=== PATIENT | male | born 1930 | race Caucasian/White ===

== ENCOUNTER → 2017-08-12 | Outpatient (CLI) | payer MEDICARE ==
[~2017-08-12] MED LIST: DOC100 PO; DONE5TAB74 PO; LORA-802 PO; NONE NOW; OME20PT PO; OMEP-125 PO; ONDA8TAB94 PO; PER PO; RAN150 PO; RANI-324 PO; TAMS0.4C69 PO; TAMS0.4C70 PO
[2017-08-12 14:19] LABS: PLATELET COUNT, AUTOMATED 345 K/uL (150-450)
--- NOTE | 2017-08-12 14:39 | RADIOLOGY IMAGING REPORT ---
FACILITY: [facility] PATIENT NAME: Yobany Berrios : 1930 MR: [id number] V: [id number] EXAM DATE: ORDERING PHYSICIAN: SHERYL OJEDA TECHNOLOGIST: Location: [facility] Patient: Yobany Berrios : 1930 Visit/Account:[id number] Date of Sevice: 08/12/2017 2 VIEWS CHEST INDICATION: Question right lower lobe pneumonia COMPARISON: None available FINDINGS: Heart size within normal limits. There is borderline pulmonary hyperinflation with linear prominence of the interstitium within the ba ses finding indicative of chronic interstitial lung disease. No evidence of right lower lobe consoli dation or infiltrate. Note is made of a 4 mm circular density overlying the left lower lobe. This is of unknown chronicity . CT examination the chest abdomen and pelvis from 2012 is not retrievable in the system. Recommend follow-up radiograph in six months to verify stability IMPRESSION: 1. No evidence of acute process or right lower lobe pneumonia 2. Incidental note of 4 mm nodular density overlying left lower lobe. Recommend follow-up x-ray in six months to verify stability Report Dictated By: Ad Bruno MD at 08/12/2017 2:30 PM Report E-Signed By: Ad Bruno MD at 08/12/2017 2:33 PM [id number]:[email or web address]
== END ==
LOC: LAB 13:43
PROVIDERS: ATTEND Nurse Practitioner Primary Care
DX: R91.8 Other nonspecific abnormal finding of lung field (principal); R10.9 Unspecified abdominal pain
CPT/HCPCS: 36415; 71046; 81001; 82040; 82150; 82247; 82310; 82374; 82435; 82565; 82947; 83690; 84075; 84132; 84155; 84295; 84450; 84460; 84520; 85025

== ENCOUNTER 2018-04-23 15:34 | Emergency (ER) | payer MEDICARE ==
[~2018-04-23 15:34] MED LIST changes: +FLUT16SP19 NS; -RANI-324 PO; +RANI-366 PO
--- NOTE | 2018-04-23 15:43 | ER Report ---
History and Physical Time Seen By MD: 15:44 HPI/ROS CHIEF COMPLAINT: Confusion HISTORY OF PRESENT ILLNESS: 88-year-old male patient presents to the emergency room with his family with complaint of confusion. Family states that he had a 16 hour period where he was confused. He felt that medication that he was taking was affecting his stock portfolio. His son states that the patient had talked about going [place]. Son states that the patient would get onto atopic and would be convinced it would not be dissuaded. He denies any fevers, chills, nausea, vomiting or diarrhea. He states that he does have times of his doing better times a day is doing worse. REVIEW OF SYSTEMS: Respiratory: No cough, no dyspnea. Cardiovascular: No chest pain, no palpitations. Gastrointestinal: No vomiting, no abdominal pain. Musculoskeletal: No back pain. Allergies: Coded Allergies: No Known Drug Allergies (Unverified , 04/23/18) Home Meds Reported Medications Ranitidine Hcl (ZANTAC) 150 Mg Tablet, 150 MG PO PRN, TAB 04/23/18 Discontinued Reported Medications Loratadine (CLARITIN) 10 Mg Tablet, 10 MG PO PRN 12/16/16 Discontinued Scripts Fluticasone Prop 50 Mcg Ns (FLONASE 50 MCG NS) 16 Gm Valdez.susp, 2 SPRAYS NS QDAY for 30 Days, #1 BOT 3 Refills Prov:JALEN MATSON MD 10/21/17 Past Medical/Surgical History Patient has a past medical history of reflux, cholecystitis, enlarged prostate, arthritis, fractures, hypothyroidism, dementia. Patient has surgical history of cataract surgery, dental implants, TURP. Patient has a family medical history of cancer, CAD, stroke, diabetes. Reviewed Nurses Notes: Yes Hx Smoking: No Smoking Status: Never Smoker Constitutional Vital Sign - Last 24 Hours 04/23/18 04/23/18 04/23/18 04/23/18 15:38 15:45 16:00 16:15 Temp 97.4 Pulse 68 63 65 64 Resp 16 13 20 11 B/P (MAP) 127/83 139/85 (103) Pulse Ox 90 91 95 90 O2 Delivery Room Air 04/23/18 04/23/18 04/23/18 04/23/18 16:30 17:00 17:30 17:45 Pulse 67 58 Resp 20 B/P (MAP) 132/111 (118) 156/80 (105) 168/89 (115) Pulse Ox 98 95 98 04/23/18 04/23/18 04/23/18 18:00 18:15 18:30 Pulse 56 58 60 Resp 10 14 18 B/P (MAP) 158/89 (112) 151/87 (108) Pulse Ox 94 92 96 Physical Exam General Appearance: The patient is alert, has no immediate need for airway protection and no current signs of toxicity. Respiratory: Chest is non tender, lungs are clear to auscultation. Cardiac: regular rate and rhythm Gastrointestinal: Abdomen is soft and non tender, no masses, bowel sounds normal. Musculoskeletal: Neck: Neck is supple and non tender. Extremities have full range of motion and are non tender. Skin: No rashes or lesions. Neuro: Patient is alert, he is unable to tell me where he is at. Cranial nerves II through XII grossly intact. Patient was unable to complete serial sevens. DIFFERENTIAL DIAGNOSIS: After history and physical exam differential diagnosis was considered for stroke, TIA, urinary tract infection, infection. Medical Decision Making Data Points Result Diagram: 04/23/18 1556 04/23/18 1556 Laboratory Hematology Test 04/23/18 15:56 04/23/18 17:54 Red Blood Count 4.91 M/uL (4.00-5.60) Mean Corpuscular Volume 93.4 fL (80.0-96.0) Mean Corpuscular Hemoglobin 31.1 pg (26.0-33.0) Mean Corpuscular Hemoglobin Concent 33.3 g/dL (32.0-36.0) Red Cell Distribution Width 13.6 % (11.5-14.5) Mean Platelet Volume 7.4 fL (7.2-11.1) Neutrophils (%) (Auto) 74.7 % (39.4-72.5) Lymphocytes (%) (Auto) 18.1 % (17.6-49.6) Monocytes (%) (Auto) 5.7 % (4.1-12.4) Eosinophils (%) (Auto) 0.7 % (0.4-6.7) Basophils (%) (Auto) 0.8 % (0.3-1.4) Nucleated RBC Relative Count (auto) 0.1 /100WBC Neutrophils # (Auto) 8.3 K/uL (2.0-7.4) Lymphocytes # (Auto) 2.0 K/uL (1.3-3.6) Monocytes # (Auto) 0.6 K/uL (0.3-1.0) Eosinophils # (Auto) 0.1 K/uL (0.0-0.5) Basophils # (Auto) 0.1 K/uL (0.0-0.1) Nucleated RBC Absolute Count (auto) 0.01 K/uL Sodium Level 137 mmol/L (137-145) Potassium Level 3.7 mmol/L (3.5-5.0) Chloride Level 101 mmol/L (98-107) Carbon Dioxide Level 27 mmol/L (22-30) Blood Urea Nitrogen 22 mg/dl (9-21) Creatinine 1.10 mg/dl (0.66-1.25) Glomerular Filtration Rate Calc > 60.0 Random Glucose 125 mg/dl (75-110) Calcium Level 9.0 mg/dl (8.4-10.2) Total Bilirubin 0.4 mg/dl (0.2-1.3) Aspartate Amino Transf (AST/SGOT) 45 U/L (0-35) Alanine Aminotransferase (ALT/SGPT) 22 U/L (0-56) Alkaline Phosphatase 98 U/L (0-126) Ammonia < 9 UMOL/L (9-33) Troponin I < 0.012 ng/ml Total Protein 7.2 g/dl (6.3-8.2) Albumin 3.7 g/dl (3.5-5.0) Serum Alcohol < 10 mg/dl Urine Color Yellow Urine Clarity Clear Urine pH 7.0 pH (4.8-9.5) Urine Specific [place] 1.017 Urine Protein Negative mg/dL (NEGATIVE) Urine Glucose (UA) Negative mg/dL (NEGATIVE) Urine Ketones 20 mg/dL (NEGATIVE) Urine Blood Negative (NEGATIVE) Urine Nitrite Negative (NEGATIVE) Urine Bilirubin Negative (NEGATIVE) Urine Urobilinogen Negative mg/dL (0.2-1.9) Urine Leukocyte Esterase Negative (NEGATIVE) Urine RBC 2 /HPF (0-2/HPF) Urine WBC <1 /HPF (0-5/HPF) Urine Squamous Epithelial Cells Few /LPF (</=FEW) Urine Bacteria Negative /HPF (NONE-FEW) Urine Mucus None /HPF (NONE-FEW) Urine Opiates Screen Negative Urine Barbiturates Screen Negative Ur Tricyclic Antidepressants Screen Negative Urine Phencyclidine Screen Negative Urine Amphetamines Screen Negative Urine Benzodiazepines Screen Negative Urine Cocaine Screen Negative Urine Cannabinoids Screen Negative Chemistry Test 04/23/18 15:56 04/23/18 17:54 White Blood Count 11.1 k/uL (4.5-11.0) Red Blood Count 4.91 M/uL (4.00-5.60) Hemoglobin 15.3 g/dL (14.0-18.0) Hematocrit 45.9 % (42.0-52.0) Mean Corpuscular Volume 93.4 fL (80.0-96.0) Mean Corpuscular Hemoglobin 31.1 pg (26.0-33.0) Mean Corpuscular Hemoglobin Concent 33.3 g/dL (32.0-36.0) Red Cell Distribution Width 13.6 % (11.5-14.5) Platelet Count 390 K/uL (150-450) Mean Platelet Volume 7.4 fL (7.2-11.1) Neutrophils (%) (Auto) 74.7 % (39.4-72.5) Lymphocytes (%) (Auto) 18.1 % (17.6-49.6) Monocytes (%) (Auto) 5.7 % (4.1-12.4) Eosinophils (%) (Auto) 0.7 % (0.4-6.7) Basophils (%) (Auto) 0.8 % (0.3-1.4) Nucleated RBC Relative Count (auto) 0.1 /100WBC Neutrophils # (Auto) 8.3 K/uL (2.0-7.4) Lymphocytes # (Auto) 2.0 K/uL (1.3-3.6) Monocytes # (Auto) 0.6 K/uL (0.3-1.0) Eosinophils # (Auto) 0.1 K/uL (0.0-0.5) Basophils # (Auto) 0.1 K/uL (0.0-0.1) Nucleated RBC Absolute Count (auto) 0.01 K/uL Glomerular Filtration Rate Calc > 60.0 Calcium Level 9.0 mg/dl (8.4-10.2) Total Bilirubin 0.4 mg/dl (0.2-1.3) Aspartate Amino Transf (AST/SGOT) 45 U/L (0-35) Alanine Aminotransferase (ALT/SGPT) 22 U/L (0-56) Alkaline Phosphatase 98 U/L (0-126) Ammonia < 9 UMOL/L (9-33) Troponin I < 0.012 ng/ml Total Protein 7.2 g/dl (6.3-8.2) Albumin 3.7 g/dl (3.5-5.0) Serum Alcohol < 10 mg/dl Urine Color Yellow Urine Clarity Clear Urine pH 7.0 pH (4.8-9.5) Urine Specific [place] 1.017 Urine Protein Negative mg/dL (NEGATIVE) Urine Glucose (UA) Negative mg/dL (NEGATIVE) Urine Ketones 20 mg/dL (NEGATIVE) Urine Blood Negative (NEGATIVE) Urine Nitrite Negative (NEGATIVE) Urine Bilirubin Negative (NEGATIVE) Urine Urobilinogen Negative mg/dL (0.2-1.9) Urine Leukocyte Esterase Negative (NEGATIVE) Urine RBC 2 /HPF (0-2/HPF) Urine WBC <1 /HPF (0-5/HPF) Urine Squamous Epithelial Cells Few /LPF (</=FEW) Urine Bacteria Negative /HPF (NONE-FEW) Urine Mucus None /HPF (NONE-FEW) Urine Opiates Screen Negative Urine Barbiturates Screen Negative Ur Tricyclic Antidepressants Screen Negative Urine Phencyclidine Screen Negative Urine Amphetamines Screen Negative Urine Benzodiazepines Screen Negative Urine Cocaine Screen Negative Urine Cannabinoids Screen Negative Toxicology Test 04/23/18 15:56 04/23/18 17:54 Serum Alcohol < 10 mg/dl Urine Opiates Screen Negative Urine Barbiturates Screen Negative Ur Tricyclic Antidepressants Screen Negative Urine Phencyclidine Screen Negative Urine Amphetamines Screen Negative Urine Benzodiazepines Screen Negative Urine Cocaine Screen Negative Urine Cannabinoids Screen Negative Urinalysis Test 04/23/18 17:54 Urine Color Yellow Urine Clarity Clear Urine pH 7.0 pH (4.8-9.5) Urine Specific [place] 1.017 Urine Protein Negative mg/dL (NEGATIVE) Urine Glucose (UA) Negative mg/dL (NEGATIVE) Urine Ketones 20 mg/dL (NEGATIVE) Urine Blood Negative (NEGATIVE) Urine Nitrite Negative (NEGATIVE) Urine Bilirubin Negative (NEGATIVE) Urine Urobilinogen Negative mg/dL (0.2-1.9) Urine Leukocyte Esterase Negative (NEGATIVE) Urine RBC 2 /HPF (0-2/HPF) Urine WBC <1 /HPF (0-5/HPF) Urine Squamous Epithelial Cells Few /LPF (</=FEW) Urine Bacteria Negative /HPF (NONE-FEW) Urine Mucus None /HPF (NONE-FEW) EKG/Imaging Imaging Examination: CHEST SINGLE AP Comparison: Chest x-ray 08/12/2017. Chest CT 06/10/2012. History: confusion Findings: Cardiac and hilar contour size is normal. The 4 mm nodular density projecting over the left lower lung is unchanged since the most recent radio graph and given differences in modality is likely unchanged since the chest CT. No new or enlarging consolidation or nodule. No pneumothorax, edema, or effusion. Osseous structures are intact. IMPRESSION: No evidence of acute cardiopulmonary disease. Report Dictated By: Julio Camilo MD at 04/23/2018 5:39 PM Report E-Signed By: Julio Camilo MD at 04/23/2018 5:41 PM EXAMINATION: CT HEAD WITHOUT CONTRAST COMPARISON: None available HISTORY: Altered mental status today. PROCEDURE: Noncontrast CT from the vertex through the skull base. One of the following dose optimization techniques was utilized in the performance of this exam: Automated exposure control; adjustment of the mA and/or kV according to the patient's size; or use of an iterative reconstruction technique. Specific details can be referenced in the facility's radiology CT exam operational policy. FINDINGS: Brain volume: Mild global volume loss. Hemorrhage/extra-axial fluid: None. Mass effect/midline shift/edema: None. Ischemia: Mild chronic-appearing white matter change with no focal region of acute jimenez-white differentiation loss. Ventricles and basal cisterns: Within normal limits. Posterior fossa: Negative. Vessels: Atherosclerosis. Calvarium, skull base, and scalp: Negative. Visualized sinuses and orbits: Within normal limits. IMPRESSION: 1. No intracranial hemorrhage or mass effect. 2. Atrophy and chronic-appearing white matter change. No CT findings of acute ischemia. Report Dictated By: Julio Camilo MD at 04/23/2018 4:58 PM Report E-Signed By: Julio Camilo MD at 04/23/2018 5:03 PM ED Course/Re-evaluation ED Course Patient was admitted to examined, history and physical were obtained. Differential diagnoses were considered. On examination lungs are clear, heart is regular, abdomen soft nontender. Patient is alert, he is unable to telemetry where he was at. He is unable to complete serial sevens but cranials nerves II through XII grossly intact. Patient had equal strength bilaterally. A CT scan of the head was done, a CBC, CMP, troponin, EKG, chest x-ray, urinalysis were done. Labs were unremarkable, patient did have a slightly elevated white count of 11.1 with a very mild left shift. I had initially thought that patient would have a urinary tract infection. Patient had a negative urine. Troponin was negative, EKG showed a normal sinus rhythm. Chest x-ray showed no acute cardiopulmonary processes. CT scan of the head was negative. I discussed the findings with the patient and his family. I discussed about possible admission. Patient adamantly refused and family agreed. We will go ahead and discharge patient home. They're to return if condition worsens. They're to continue his normal medications. They verbalized understanding and agreement. Some did tell me that he does have concerns that both his parents are elderly and that his father does have some mild dementia. He is afraid that they will be a car accident or the house will catch fire. He does live far away. He was wondering about possible evaluation for competency. I informed him that that would be something that would be done through a psychiatrist. He said that he would keep an eye on the patient for the next couple days and certainly would bring him back with any worsening of his condition. Decision to Disposition Date: Apr 23, 2018 Decision to Disposition Time: 18:37 Depart Departure Latest Vital Signs Vital Signs Date Time Temp Pulse Resp B/P (MAP) Pulse Ox O2 Delivery O2 Flow Rate FiO2 04/23/18 18:30 60 18 151/87 (108) 96 04/23/18 15:38 97.4 Room Air Impression: Primary Impression: Confusion Condition: Condition Unchanged Disposition: HOME OR SELF-CARE Referrals: JALEN MATSON MD (PCP) Patient Instructions: GENERAL ER DISCHARGE INSTRUCTIONS Additional Instructions: If condition worsens come back to the ER. Continue with normal medications. Follow up with your primary care provider in the next week. We are culturing the urine and will call if there is anything that grows in the culture. ELROY MATIAS Apr 23, 2018 15:43
[2018-04-23] MEDS ORDERED: RANI-366 PO (15:45)
--- NOTE | 2018-04-23 16:38 | EKG ---
[place] [facility] [place] NAME: TOSHA WILSON : [id number] MR: [id number] V: [id number] EXAM DATE: ORDERING PHYSICIAN: ELROY MATIAS TECHNOLOGIST: KEERTHI Guadalupe Reason : CONFUSION Blood Pressure : / mmHG Vent. Rate : 065 BPM Atrial Rate : 065 BPM P-R Int : 178 ms QRS Dur : 078 ms QT Int : 416 ms P-R-T Axes : 051 036 053 degrees QTc Int : 432 ms Normal sinus rhythm Normal ECG When compared with ECG of 10-JUN-2012 08:33, No significant change was found Confirmed by ZULEIMA BLACK ([id number]) on 04/23/2018 8:54:06 PM Referred By: FLORENCIO Confirmed By:ZULEIMA BLACK
[2018-04-23 16:39] LABS: PLATELET COUNT, AUTOMATED 390 K/uL (150-450)
--- NOTE | 2018-04-23 17:07 | RADIOLOGY IMAGING REPORT ---
FACILITY: [facility] [place] PATIENT NAME: Yobany Berrios : 1930 MR: [id number] V: [id number] EXAM DATE: ORDERING PHYSICIAN: ELROY MATIAS TECHNOLOGIST: Location: [facility] Patient: Yobany Berrios : 1930 Visit/Account:[id number] Date of Sevice: 04/23/2018 EXAMINATION: CT HEAD WITHOUT CONTRAST COMPARISON: None available HISTORY: Altered mental status today. PROCEDURE: Noncontrast CT from the vertex through the skull base. One of the following dose optimizat ion techniques was utilized in the performance of this exam: Automated exposure control; adjustment o f the mA and/or kV according to the patient's size; or use of an iterative reconstruction technique. Specific details can be referenced in the facility's radiology CT exam operational policy. FINDINGS: Brain volume: Mild global volume loss. Hemorrhage/extra-axial fluid: None. Mass effect/midline shift/edema: None. Ischemia: Mild chronic-appearing white matter change with no focal region of acute jimenez-white differe ntiation loss. Ventricles and basal cisterns: Within normal limits. Posterior fossa: Negative. Vessels: Atherosclerosis. Calvarium, skull base, and scalp: Negative. Visualized sinuses and orbits: Within normal limits. IMPRESSION: 1. No intracranial hemorrhage or mass effect. 2. Atrophy and chronic-appearing white matter change. No CT findings of acute ischemia. Report Dictated By: Julio Camilo MD at 04/23/2018 4:58 PM Report E-Signed By: Julio Camilo MD at 04/23/2018 5:03 PM WSN:[id number]
--- NOTE | 2018-04-23 17:45 | RADIOLOGY IMAGING REPORT ---
FACILITY: [facility] PATIENT NAME: Yobany Berrios : 1930 MR: [id number] V: [id number] EXAM DATE: ORDERING PHYSICIAN: ELROY MATIAS TECHNOLOGIST: Location: [facility] Patient: Yobany Berrios : 1930 Visit/Account:[id number] Date of Sevice: 04/23/2018 Examination: CHEST SINGLE AP Comparison: Chest x-ray 08/12/2017. Chest CT 06/10/2012. History: confusion Findings: Cardiac and hilar contour size is normal. The 4 mm nodular density projecting over the lef t lower lung is unchanged since the most recent radiograph and given differences in modality is likel y unchanged since the chest CT. No new or enlarging consolidation or nodule. No pneumothorax, edema, or effusion. Osseous structures are intact. IMPRESSION: No evidence of acute cardiopulmonary disease. Report Dictated By: Julio Camilo MD at 04/23/2018 5:39 PM Report E-Signed By: Julio Camilo MD at 04/23/2018 5:41 PM WSN:[id number]
[2018-04-23 18:30] VITALS: BP 151/87
== END 2018-04-23 18:43 | disposition home or self-care (01) ==
LOC: ER 16:02
DX: R41.0 Disorientation, unspecified (principal)
CPT/HCPCS: 36415; 70450; 71045; 80305; 81001; 82140; 84484; 85025; 87088; 93005; 99284; G0480; 80320; 82040; 82247; 82310; 82374; 82435; 82565; 82947; 84075; 84132; 84155; 84295; 84450; 84460; 84520

== ENCOUNTER 2018-04-27 09:19 | Emergency (ER) | payer MEDICARE ==
--- NOTE | 2018-04-27 10:31 | ER Report ---
History and Physical Time Seen By MD: 10:32 HPI/ROS CHIEF COMPLAINT: Transient confusion HISTORY OF PRESENT ILLNESS: 88-year-old male patient presents to emergency room with complaint transient confusion. Patient states that as of right now he is feeling fine. His son states that last night he was very confused, he was agitated. 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. He states that he has been on top of things most of his life. They state that he has had some dementia over the past few years. He been doing fine until approximately one week ago. At that time he had confusion which lasted several hours and seemed to resolve. Patient states currently that he is feeling fine. He denies having any confusion. He states that he's tried to repair the active, cutting firewood and bring it in to the house. They patient and his are [facility]. They wanted an evaluation done and if everything is negative a order for medication to help with nighttime. REVIEW OF SYSTEMS: Respiratory: No cough, no dyspnea. Cardiovascular: No chest pain, no palpitations. Gastrointestinal: No vomiting, no abdominal pain. Musculoskeletal: No back pain. Allergies: Coded Allergies: No Known Drug Allergies (Unverified , 04/23/18) Home Meds Active Scripts Haloperidol (HALOPERIDOL) 0.5 Mg Tablet, 0.5 MG PO QHS PRN for AGITATION, #10 TAB Prov:ELROY MATIAS 04/27/18 Reported Medications Ranitidine Hcl (ZANTAC) 150 Mg Tablet, 150 MG PO PRN, TAB 04/23/18 Discontinued Reported Medications Loratadine (CLARITIN) 10 Mg Tablet, 10 MG PO PRN 12/16/16 Discontinued Scripts Fluticasone Prop 50 Mcg Ns (FLONASE 50 MCG NS) 16 Gm [place].susp, 2 SPRAYS NS QDAY for 30 Days, #1 BOT 3 Refills Prov:JALEN MATSON MD 10/21/17 Past Medical/Surgical History Patient has a past medical history of ulcers, cholecystitis, enlarged prostate, arthritis, fractures, hypothyroidism, early dementia. Patient has a surgical history of a TURP, dental implants, cataract removed. Patient has a family medical history of cancer, CAD, stroke, diabetes. Reviewed Nurses Notes: Yes Hx Smoking: No Smoking Status: Never Smoker Constitutional Vital Sign - Last 24 Hours 04/27/18 04/27/18 04/27/18 04/27/18 09:19 09:28 09:34 09:49 Pulse ? 57 B/P (MAP) 117/64 (81) Pulse Ox 91 04/27/18 04/27/18 04/27/18 04/27/18 10:04 10:19 10:34 10:49 Pulse 59 59 59 63 Pulse Ox 92 95 87 93 04/27/18 04/27/18 04/27/18 04/27/18 10:57 10:58 11:00 11:05 Temp 97.8 Pulse 61 60 Resp 14 B/P (MAP) 112/59 113/60 (77) 112/59 (76) Pulse Ox 90 94 O2 Delivery Room Air 04/27/18 04/27/18 04/27/18 04/27/18 11:20 11:30 11:35 11:50 Pulse ??? 58 60 Resp 17 14 15 B/P (MAP) 116/52 (73) Pulse Ox 93 97 98 04/27/18 04/27/18 04/27/18 04/27/18 12:00 12:05 12:20 12:35 Pulse 63 ? Resp 11 11 B/P (MAP) 125/81 (96) 04/27/18 04/27/18 12:50 13:00 Pulse ??? Resp 7 B/P (MAP) 130/66 (87) Pulse Ox 84 Physical Exam General Appearance: The patient is alert, has no immediate need for airway protection and no current signs of toxicity. Respiratory: Chest is non tender, lungs are clear to auscultation. Cardiac: regular rate and rhythm Gastrointestinal: Abdomen is soft and non tender, no masses, bowel sounds normal. Musculoskeletal: Neck: Neck is supple and non tender. Extremities have full range of motion and are non tender. Skin: No rashes or lesions. Neuro: Patient is alert and oriented 4, cranial nerves II through XII grossly intact. DIFFERENTIAL DIAGNOSIS: After history and physical exam differential diagnosis was considered for dementia, sundowning, stroke. Medical Decision Making Data Points Result Diagram: 04/27/18 1056 04/27/18 1056 Laboratory Hematology Test 04/27/18 10:56 04/27/18 12:04 04/27/18 13:12 Red Blood Count 4.00 M/uL (4.00-5.60) Mean Corpuscular Volume 95.2 fL (80.0-96.0) Mean Corpuscular Hemoglobin 32.0 pg (26.0-33.0) Mean Corpuscular Hemoglobin Concent 33.6 g/dL (32.0-36.0) Red Cell Distribution Width 13.8 % (11.5-14.5) Mean Platelet Volume 7.4 fL (7.2-11.1) Neutrophils (%) (Auto) 72.7 % (39.4-72.5) Lymphocytes (%) (Auto) 20.0 % (17.6-49.6) Monocytes (%) (Auto) 6.1 % (4.1-12.4) Eosinophils (%) (Auto) 0.3 % (0.4-6.7) Basophils (%) (Auto) 0.9 % (0.3-1.4) Nucleated RBC Relative Count (auto) 0.0 /100WBC Neutrophils # (Auto) 5.6 K/uL (2.0-7.4) Lymphocytes # (Auto) 1.5 K/uL (1.3-3.6) Monocytes # (Auto) 0.5 K/uL (0.3-1.0) Eosinophils # (Auto) 0.0 K/uL (0.0-0.5) Basophils # (Auto) 0.1 K/uL (0.0-0.1) Nucleated RBC Absolute Count (auto) 0.00 K/uL Sodium Level 135 mmol/L (137-145) Potassium Level 4.1 mmol/L (3.5-5.0) Chloride Level 104 mmol/L (98-107) Carbon Dioxide Level 21 mmol/L (22-30) Blood Urea Nitrogen 45 mg/dl (9-21) Creatinine 1.40 mg/dl (0.66-1.25) Glomerular Filtration Rate Calc 47.8 Random Glucose 94 mg/dl (75-110) Calcium Level 9.0 mg/dl (8.4-10.2) Total Bilirubin 0.6 mg/dl (0.2-1.3) Aspartate Amino Transf (AST/SGOT) 32 U/L (0-35) Alanine Aminotransferase (ALT/SGPT) 24 U/L (0-56) Alkaline Phosphatase 80 U/L (0-126) Total Protein 6.6 g/dl (6.3-8.2) Albumin 3.4 g/dl (3.5-5.0) Urine Color Yellow Urine Clarity Clear Urine pH 5.0 pH (4.8-9.5) Urine Specific [place] 1.021 Urine Protein Negative mg/dL (NEGATIVE) Urine Glucose (UA) Negative mg/dL (NEGATIVE) Urine Ketones 20 mg/dL (NEGATIVE) Urine Blood Negative (NEGATIVE) Urine Nitrite Negative (NEGATIVE) Urine Bilirubin Negative (NEGATIVE) Urine Urobilinogen Negative mg/dL (0.2-1.9) Urine Leukocyte Esterase Negative (NEGATIVE) Urine RBC None /HPF (0-2/HPF) Urine WBC 1 /HPF (0-5/HPF) Urine Squamous Epithelial Cells Many /LPF (</=FEW) Urine Bacteria Negative /HPF (NONE-FEW) Urine Mucus Few /HPF (NONE-FEW) Urine Opiates Screen Negative Urine Barbiturates Screen Negative Ur Tricyclic Antidepressants Screen Negative Urine Phencyclidine Screen Negative Urine Amphetamines Screen Negative Urine Benzodiazepines Screen Negative Urine Cocaine Screen Negative Urine Cannabinoids Screen Negative Troponin I 0.032 ng/ml Chemistry Test 04/27/18 10:56 04/27/18 12:04 04/27/18 13:12 White Blood Count 7.7 k/uL (4.5-11.0) Red Blood Count 4.00 M/uL (4.00-5.60) Hemoglobin 12.8 g/dL (14.0-18.0) Hematocrit 38.1 % (42.0-52.0) Mean Corpuscular Volume 95.2 fL (80.0-96.0) Mean Corpuscular Hemoglobin 32.0 pg (26.0-33.0) Mean Corpuscular Hemoglobin Concent 33.6 g/dL (32.0-36.0) Red Cell Distribution Width 13.8 % (11.5-14.5) Platelet Count 330 K/uL (150-450) Mean Platelet Volume 7.4 fL (7.2-11.1) Neutrophils (%) (Auto) 72.7 % (39.4-72.5) Lymphocytes (%) (Auto) 20.0 % (17.6-49.6) Monocytes (%) (Auto) 6.1 % (4.1-12.4) Eosinophils (%) (Auto) 0.3 % (0.4-6.7) Basophils (%) (Auto) 0.9 % (0.3-1.4) Nucleated RBC Relative Count (auto) 0.0 /100WBC Neutrophils # (Auto) 5.6 K/uL (2.0-7.4) Lymphocytes # (Auto) 1.5 K/uL (1.3-3.6) Monocytes # (Auto) 0.5 K/uL (0.3-1.0) Eosinophils # (Auto) 0.0 K/uL (0.0-0.5) Basophils # (Auto) 0.1 K/uL (0.0-0.1) Nucleated RBC Absolute Count (auto) 0.00 K/uL Glomerular Filtration Rate Calc 47.8 Calcium Level 9.0 mg/dl (8.4-10.2) Total Bilirubin 0.6 mg/dl (0.2-1.3) Aspartate Amino Transf (AST/SGOT) 32 U/L (0-35) Alanine Aminotransferase (ALT/SGPT) 24 U/L (0-56) Alkaline Phosphatase 80 U/L (0-126) Total Protein 6.6 g/dl (6.3-8.2) Albumin 3.4 g/dl (3.5-5.0) Urine Color Yellow Urine Clarity Clear Urine pH 5.0 pH (4.8-9.5) Urine Specific [place] 1.021 Urine Protein Negative mg/dL (NEGATIVE) Urine Glucose (UA) Negative mg/dL (NEGATIVE) Urine Ketones 20 mg/dL (NEGATIVE) Urine Blood Negative (NEGATIVE) Urine Nitrite Negative (NEGATIVE) Urine Bilirubin Negative (NEGATIVE) Urine Urobilinogen Negative mg/dL (0.2-1.9) Urine Leukocyte Esterase Negative (NEGATIVE) Urine RBC None /HPF (0-2/HPF) Urine WBC 1 /HPF (0-5/HPF) Urine Squamous Epithelial Cells Many /LPF (</=FEW) Urine Bacteria Negative /HPF (NONE-FEW) Urine Mucus Few /HPF (NONE-FEW) Urine Opiates Screen Negative Urine Barbiturates Screen Negative Ur Tricyclic Antidepressants Screen Negative Urine Phencyclidine Screen Negative Urine Amphetamines Screen Negative Urine Benzodiazepines Screen Negative Urine Cocaine Screen Negative Urine Cannabinoids Screen Negative Troponin I 0.032 ng/ml Toxicology Test 04/27/18 12:04 Urine Opiates Screen Negative Urine Barbiturates Screen Negative Ur Tricyclic Antidepressants Screen Negative Urine Phencyclidine Screen Negative Urine Amphetamines Screen Negative Urine Benzodiazepines Screen Negative Urine Cocaine Screen Negative Urine Cannabinoids Screen Negative Urinalysis Test 04/27/18 12:04 Urine Color Yellow Urine Clarity Clear Urine pH 5.0 pH (4.8-9.5) Urine Specific [place] 1.021 Urine Protein Negative mg/dL (NEGATIVE) Urine Glucose (UA) Negative mg/dL (NEGATIVE) Urine Ketones 20 mg/dL (NEGATIVE) Urine Blood Negative (NEGATIVE) Urine Nitrite Negative (NEGATIVE) Urine Bilirubin Negative (NEGATIVE) Urine Urobilinogen Negative mg/dL (0.2-1.9) Urine Leukocyte Esterase Negative (NEGATIVE) Urine RBC None /HPF (0-2/HPF) Urine WBC 1 /HPF (0-5/HPF) Urine Squamous Epithelial Cells Many /LPF (</=FEW) Urine Bacteria Negative /HPF (NONE-FEW) Urine Mucus Few /HPF (NONE-FEW) EKG/Imaging EKG Interpretation 12 lead EKG: Rhythm: Sinus bradycardia with a ventricular rate of 59 bpm [place]: normal QRS: normal ST segments: normal Imaging CHEST SINGLE AP COMPARISONS: Single view chest dated April 23, 2018 ADDITIONAL PERTINENT HISTORY: Confusion FINDINGS: Cardiomediastinal silhouette: Negative. Pulmonary vasculature: Negative. Lung ramírez: Minimal bibasilar regions of scarring. Otherwise negative Pleural spaces: Negative. Osseous structures: Negative. Surrounding soft tissues: Negative. IMPRESSION: No evidence of acute cardiopulmonary disease. Report Dictated By: Tc Walker MD at 04/27/2018 1:07 PM Report E-Signed By: Tc Walker MD at 04/27/2018 1:[address] scan without contrast COMPARISONS: Head CT scan dated April 23, 2018 ADDITIONAL PERTINENT HISTORY: Confusion TECHNIQUE: Multiple axial images were obtained from the skull base to the vertex without IV contrast. One of the following dose optimization techniques was utilized in the performance of this exam: Automated exposure control; adjustment of the mA and/or kV according to the patient's size; or use of an iterative reconstruction technique. Specific details can be referenced in the facility's radiology CT exam operational policy. FINDINGS: Midline shift: Negative Ventricles: Negative Brain parenchyma: Patchy hypoattenuation within the periventricular and subcortical white matter, nonspecific but likely representing small vessel ischemic change on a chronic basis. No intraparenchymal hemorrhage or mass effect. Extra-axial spaces: Moderate cerebral atrophy. Intracranial vasculature: Cavernous internal carotid artery calcifications and distal vertebral artery calcifications. Osseous structures: Negative Paranasal sinuses and mastoid air cells: Small mucous retention cyst involving the right sphenoid sinus. Surrounding soft tissues and orbits: Negative IMPRESSION: 1. Mild age-related changes as described above. 2. No evidence of acute cranial pathology. Report Dictated By: Tc Walker MD at 04/27/2018 12:54 PM Report E-Signed By: Tc Walker MD at 04/27/2018 12:57 PM ED Course/Re-evaluation ED Course Patient was admitted and examined, history and physical were obtained. Different ial diagnoses were considered. On examination lungs are clear, heart is regular, abdomen soft nontender. Patient is alert and oriented 4. A CBC, CMP, urinalysis, EKG, troponin, chest x-ray, CT scan of the head were done. Patient had a normal white count, urinalysis was negative. Troponin was initially 0.038. EKG showed a sinus bradycardia. There is no ST elevation. Chest x-ray was negative and CT scan of the head was negative. Patient did have an elevated BUN and creatinine. I will patient is likely dehydrated I think that with his decrease in kidney function as cause the troponin to be in the indeterminate range. A repeat troponin was done and came back at 0.032. I discussed the findings with the patient and his . We will go ahead and discharge patient home at this time. Patient will be given a prescription for Haldol. The pharmacy did call and stated they were unable to get Haldol and we did switch the patient to Zyprexa 10 mg by mouth as needed for agitation.. Patient is to follow-up with a primary care provider in the next week. He is return to the emergency room if condition worsens. The patient and his family verbalized understanding and agreement with plan. Decision to Disposition Date: Apr 27, 2018 Decision to Disposition Time: 13:58 Depart Departure Latest Vital Signs Vital Signs Date Time Temp Pulse Resp B/P (MAP) Pulse Ox O2 Delivery O2 Flow Rate FiO2 04/27/18 13:00 130/66 (87) 04/27/18 12:50 ??? 7 84 04/27/18 10:57 97.8 Room Air Impression: Primary Impression: Dehydration Additional Impressions: Transient confusion Memory changes Condition: Improved Disposition: HOME OR SELF-CARE New Scripts Haloperidol (HALOPERIDOL) 0.5 Mg Tablet 0.5 MG PO QHS PRN for AGITATION, #10 TAB Prov: ELROY MATIAS 04/27/18 Patient Instructions: Dehydration (ED) Additional Instructions: Increase fluid intake. Get plenty of rest. Follow up with a primary care provider in the next week. Return to the ER if condition worsens. Continue with normal medications. Use the Haldol at night as needed for agitation. Problem Qualifiers ELROY MATIAS Apr 27, 2018 10:31
[2018-04-27] MEDS ORDERED: NS(*) 0.9% 500 ML BAG 500 ML IV ONE (10:42)
[2018-04-27 11:09] LABS: PLATELET COUNT, AUTOMATED 330 K/uL (150-450)
--- NOTE | 2018-04-27 12:01 | EKG ---
FACILITY: [facility] - [place] PATIENT NAME: TOSHA WILSON : [id number] MR: [id number] V: [id number] EXAM DATE: ORDERING PHYSICIAN: ELROY MATIAS TECHNOLOGIST: Test Reason : Blood Pressure : / mmHG Vent. Rate : 059 BPM Atrial Rate : 059 BPM P-R Int : 162 ms QRS Dur : 098 ms QT Int : 422 ms P-R-T Axes : 055 022 035 degrees QTc Int : 417 ms Sinus bradycardia Otherwise normal ECG When compared with ECG of 23-APR-2018 16:34, No significant change was found Confirmed by CHELITA WYNNE ([id number]) on 04/27/2018 1:30:12 PM Referred By: Confirmed By:CHELITA WYNNE
[2018-04-27 13:00] VITALS: BP 130/66
--- NOTE | 2018-04-27 13:00 | RADIOLOGY IMAGING REPORT ---
FACILITY: [facility] PATIENT NAME: Yobany Berrios : 1930 MR: [id number] V: [id number] EXAM DATE: ORDERING PHYSICIAN: ELROY MATIAS TECHNOLOGIST: Location: [facility] - [place] Patient: Yobany Berrios : 1930 Visit/Account:[id number] Date of Sevice: 04/27/[address] scan without contrast COMPARISONS: Head CT scan dated April 23, 2018 ADDITIONAL PERTINENT HISTORY: Confusion TECHNIQUE: Multiple axial images were obtained from the skull base to the vertex without IV contrast . One of the following dose optimization techniques was utilized in the performance of this exam: Aut omated exposure control; adjustment of the mA and/or kV according to the patient's size; or use of an iterative reconstruction technique. Specific details can be referenced in the facility's radiology CT exam operational policy. FINDINGS: Midline shift: Negative Ventricles: Negative Brain parenchyma: Patchy hypoattenuation within the periventricular and subcortical white matter, no nspecific but likely representing small vessel ischemic change on a chronic basis. No intraparenchyma l hemorrhage or mass effect. Extra-axial spaces: Moderate cerebral atrophy. Intracranial vasculature: Cavernous internal carotid artery calcifications and distal vertebral ker[place] ry calcifications. Osseous structures: Negative Paranasal sinuses and mastoid air cells: Small mucous retention cyst involving the right sphenoid si nus. Surrounding soft tissues and orbits: Negative IMPRESSION: 1. Mild age-related changes as described above. 2. No evidence of acute cranial pathology. Report Dictated By: Tc Walker MD at 04/27/2018 12:54 PM Report E-Signed By: Tc Walker MD at 04/27/2018 12:57 PM WSN:[id number]
--- NOTE | 2018-04-27 13:12 | RADIOLOGY IMAGING REPORT ---
FACILITY: [facility] PATIENT NAME: Yobany Berrios : 1930 MR: [id number] V: [id number] EXAM DATE: ORDERING PHYSICIAN: ELROY MATIAS TECHNOLOGIST: Location: [facility] - [place] Patient: Yobany Berrios : 1930 Visit/Account:[id number] Date of Sevice: 04/27/2018 CHEST SINGLE AP COMPARISONS: Single view chest dated April 23, 2018 ADDITIONAL PERTINENT HISTORY: Confusion FINDINGS: Cardiomediastinal silhouette: Negative. Pulmonary vasculature: Negative. Lung ramírez: Minimal bibasilar regions of scarring. Otherwise negative Pleural spaces: Negative. Osseous structures: Negative. Surrounding soft tissues: Negative. IMPRESSION: No evidence of acute cardiopulmonary disease. Report Dictated By: Tc Walker MD at 04/27/2018 1:07 PM Report E-Signed By: Tc Walker MD at 04/27/2018 1:08 PM WSN:[id number]
[2018-04-27] MEDS ORDERED: [UNRECOGNIZED DRUG - CODE] PO (13:56)
[2018-04-28] MEDS ORDERED: OMEP-125 PO (15:38)
== END 2018-04-27 14:07 | disposition home or self-care (01) ==
LOC: ER 10:37
DX: E86.0 Dehydration (principal); R41.0 Disorientation, unspecified; R00.1 Bradycardia, unspecified
CPT/HCPCS: 36415; 70450; 71045; 80305; 81001; 84484; 85025; 93005; 96360; 99284; J7040; 82040; 82247; 82310; 82374; 82435; 82565; 82947; 84075; 84132; 84155; 84295; 84450; 84460; 84520

== ENCOUNTER → 2018-05-13 | Outpatient (CLI) | payer MEDICARE ==
[~2018-05-13] MED LIST changes: +OLAN5TAB PO; +[UNRECOGNIZED DRUG - CODE] PO
[2018-05-13 11:49] LABS: PLATELET COUNT, AUTOMATED 348 K/uL (150-450)
== END ==
LOC: LAB 11:28
PROVIDERS: ATTEND Internal Medicine
DX: F03.90 Unspecified dementia, unspecified severity, without behavioral disturbance, psychotic disturbance, mood disturbance, and anxiety (principal); J21.9 Acute bronchiolitis, unspecified; N40.0 Benign prostatic hyperplasia without lower urinary tract symptoms
CPT/HCPCS: 36415; 82040; 82247; 82310; 82374; 82435; 82565; 82607; 82746; 82947; 84075; 84132; 84153; 84155; 84295; 84443; 84450; 84460; 84520; 85025

== ENCOUNTER → 2018-08-18 | Outpatient (REF) | payer MEDICARE ==
[~2018-08-18] MED LIST changes: +OSE75 PO
== END ==
LOC: ZZSPRING 14:50
PROVIDERS: ATTEND Internal Medicine
DX: R50.9 Fever, unspecified (principal)
CPT/HCPCS: 87502

== ENCOUNTER 2018-11-23 07:48 | Inpatient (IN) | payer MEDICARE ==
[~2018-11-23] VITALS: Ht 177.8 cm; Wt 72.6 kg
[~2018-11-23 07:48] MED LIST changes: -ACET325C5 PO; -ASPI-757 PO; -CALC-521 PO; -GUAI237L36 PO; -LOPE-111 PO; -MAG-65 PO; -MOM PO
[2018-11-23] MEDS ORDERED: DIPHTH/TETANUS/ACEL. PERTUSSIS IM ONE (07:55)
--- NOTE | 2018-11-23 08:01 | ER Report ---
History and Physical Time Seen By MD: 07:54 HPI/ROS CHIEF COMPLAINT: Fall multiple injuries HISTORY OF PRESENT ILLNESS: 88-year-old pleasantly demented individual who was at [facility] comes emergency Department after having a witnessed mechanical fall. Patient's fall consisted of he stood and turned and attempted to ambulate lost his balance and fell onto his left side. Patient's describing pain to his left hip his left lower extremity is shortened and externally rotated is also describing some mild head discomfort has an obvious posterior cranial laceration. Patient denies loss of consciousness is describing some mild left rib discomfort but no upper or lower extremity pain otherwise. Patient has no abdominal pain at this time. Patient has a difficult time giving information and dizziness is due to his baseline dementia. Patient was asymptomatic prior to the fall. REVIEW OF SYSTEMS: Respiratory: No cough, no dyspnea. Cardiovascular: No chest pain, no palpitations. Gastrointestinal: No vomiting, no abdominal pain. Musculoskeletal: No back pain has left hip pain left rib pain cervical pain and head pain. Remainder of the 14 system rev: Yes Allergies: Coded Allergies: alendronate sodium (Verified Adverse Reaction, Mild, stomach pain, 11/23/18) Home Meds Active Scripts Olanzapine (OLANZAPINE ODT) 5 Mg Tab.rapdis, 1-2 TAB PO QPM, #30 TAB 3 Refills Prov:HECTOR OLIVARES MD 08/31/18 Oseltamivir Phosphate (TAMIFLU) 75 Mg Cap, 75 MG PO QDAY, #14 CAP Patient to take 1 capsule qday for 10-14days Prov:HECTOR OLIVARES MD 07/28/18 Tamsulosin Hcl (TAMSULOSIN HCL) 0.4 Mg Cap.er.24h, 0.4 MG PO QPM, #30 CAP 6 Refills Prov:HECTOR OLIVARES MD 06/18/18 Omeprazole (OMEPRAZOLE) 20 Mg Capsule.dr, 1 CAP PO QPM for 90 Days, #90 CAP 3 Refills Prov:HECTOR OLIVARES MD 06/18/18 Reviewed Nurses Notes: Yes Old Medical Records Reviewed: Yes Hx Smoking: No Smoking Status: Never Smoker Constitutional Vital Sign - Last 24 Hours 11/23/18 11/23/18 11/23/18 11/23/18 07:54 08:00 08:30 09:00 Temp 98.1 Pulse 62 62 66 62 Resp 16 18 10 8 B/P (MAP) 140/83 143/75 (97) 142/80 (100) 145/78 (100) Pulse Ox 90 90 92 92 O2 Delivery Room Air 11/23/18 09:30 Pulse 70 Resp 15 B/P (MAP) 139/79 (99) Pulse Ox 91 Physical Exam General Appearance: [The patient is alert, has no immediate need for airway protection and no current signs of toxicity.] Patient in full spinal package Eyes: Pupils equal and round no injection. Respiratory: Chest is non tender, lungs are clear to auscultation. Cardiac: regular rate and rhythm [ ] Gastrointestinal: Abdomen is soft and non tender, no masses, bowel sounds normal. Musculoskeletal: Examination of left lower extremity demonstrates a shortened and externally rotated neurovascularly intact pain with elevation flexion of the hip abduction and abduction of the left hip mortise otherwise unremarkable exam Neck is supple and non tender. Extremities have full range of motion and are non tender. Other than stated above Skin: No rashes or lesions. Posterior scalp laceration [ ] DIFFERENTIAL DIAGNOSIS: After history and physical exam differential diagnosis was considered for left hip fracture rib fracture cervical spinal fracture internal abdominal injury closed head injury laceration Medical Decision Making Data Points Result Diagram: 11/23/18 0745 11/23/18 0745 Laboratory Hematology Test 11/23/18 07:45 11/23/18 10:30 Red Blood Count 4.65 M/uL (4.00-5.60) Mean Corpuscular Volume 86.7 fL (80.0-96.0) Mean Corpuscular Hemoglobin 28.8 pg (26.0-33.0) Mean Corpuscular Hemoglobin Concent 33.2 g/dL (32.0-36.0) Red Cell Distribution Width 16.7 % (11.5-14.5) Mean Platelet Volume 7.7 fL (7.2-11.1) Neutrophils (%) (Auto) 61.4 % (39.4-72.5) Lymphocytes (%) (Auto) 26.4 % (17.6-49.6) Monocytes (%) (Auto) 5.3 % (4.1-12.4) Eosinophils (%) (Auto) 6.1 % (0.4-6.7) Basophils (%) (Auto) 0.8 % (0.3-1.4) Nucleated RBC Relative Count (auto) 0.1 /100WBC Neutrophils # (Auto) 5.3 K/uL (2.0-7.4) Lymphocytes # (Auto) 2.3 K/uL (1.3-3.6) Monocytes # (Auto) 0.5 K/uL (0.3-1.0) Eosinophils # (Auto) 0.5 K/uL (0.0-0.5) Basophils # (Auto) 0.1 K/uL (0.0-0.1) Nucleated RBC Absolute Count (auto) 0.01 K/uL Prothrombin Time 13.7 seconds (12.0-14.4) Prothromb Time International Ratio 1.04 Activated Partial Thromboplast Time 33 seconds (23-35) Sodium Level 144 mmol/L (137-145) Potassium Level 4.0 mmol/L (3.5-5.0) Chloride Level 108 mmol/L (98-107) Carbon Dioxide Level 24 mmol/L (22-30) Blood Urea Nitrogen 20 mg/dl (9-21) Creatinine 1.40 mg/dl (0.66-1.25) Glomerular Filtration Rate Calc 47.8 Random Glucose 102 mg/dl (75-110) Calcium Level 9.2 mg/dl (8.4-10.2) Total Bilirubin 0.4 mg/dl (0.2-1.3) Aspartate Amino Transf (AST/SGOT) 27 U/L (0-35) Alanine Aminotransferase (ALT/SGPT) 20 U/L (0-56) Alkaline Phosphatase 89 U/L (0-126) Total Protein 7.4 g/dl (6.3-8.2) Albumin 3.7 g/dl (3.5-5.0) Chemistry Test 11/23/18 07:45 11/23/18 10:30 White Blood Count 8.6 k/uL (4.5-11.0) Red Blood Count 4.65 M/uL (4.00-5.60) Hemoglobin 13.4 g/dL (14.0-18.0) Hematocrit 40.3 % (42.0-52.0) Mean Corpuscular Volume 86.7 fL (80.0-96.0) Mean Corpuscular Hemoglobin 28.8 pg (26.0-33.0) Mean Corpuscular Hemoglobin Concent 33.2 g/dL (32.0-36.0) Red Cell Distribution Width 16.7 % (11.5-14.5) Platelet Count 329 K/uL (150-450) Mean Platelet Volume 7.7 fL (7.2-11.1) Neutrophils (%) (Auto) 61.4 % (39.4-72.5) Lymphocytes (%) (Auto) 26.4 % (17.6-49.6) Monocytes (%) (Auto) 5.3 % (4.1-12.4) Eosinophils (%) (Auto) 6.1 % (0.4-6.7) Basophils (%) (Auto) 0.8 % (0.3-1.4) Nucleated RBC Relative Count (auto) 0.1 /100WBC Neutrophils # (Auto) 5.3 K/uL (2.0-7.4) Lymphocytes # (Auto) 2.3 K/uL (1.3-3.6) Monocytes # (Auto) 0.5 K/uL (0.3-1.0) Eosinophils # (Auto) 0.5 K/uL (0.0-0.5) Basophils # (Auto) 0.1 K/uL (0.0-0.1) Nucleated RBC Absolute Count (auto) 0.01 K/uL Prothrombin Time 13.7 seconds (12.0-14.4) Prothromb Time International Ratio 1.04 Activated Partial Thromboplast Time 33 seconds (23-35) Glomerular Filtration Rate Calc 47.8 Calcium Level 9.2 mg/dl (8.4-10.2) Total Bilirubin 0.4 mg/dl (0.2-1.3) Aspartate Amino Transf (AST/SGOT) 27 U/L (0-35) Alanine Aminotransferase (ALT/SGPT) 20 U/L (0-56) Alkaline Phosphatase 89 U/L (0-126) Total Protein 7.4 g/dl (6.3-8.2) Albumin 3.7 g/dl (3.5-5.0) Coagulation Test 11/23/18 07:45 Prothrombin Time 13.7 seconds Prothromb Time International Ratio 1.04 Activated Partial Thromboplast Time 33 seconds Urinalysis Test 11/23/18 10:30 ED Course/Re-evaluation ED Course ED course 80 Murphy mechanical fall from standing and suffered an intertrochanteric left hip comminuted fracture will be taken to surgery patient be admitted under our hospitalist service with trauma consult there is also under age indeterminate wedge fracture at T1 rest of the CT had C-spine chest abdomen pelvis were otherwise unremarkable Laceration repair patient had a 4 cm linear laceration closed with 5 interrupted zurdo Aseptic technique was performed 5 zurdo were placed with good cosmesis patient tolerated well Patient will be admitted under the hospitalist service with orthopedics and trauma consult Decision to Disposition Date: Nov 23, 2018 Decision to Disposition Time: 10:38 Depart Departure Latest Vital Signs Vital Signs Date Time Temp Pulse Resp B/P (MAP) Pulse Ox O2 Delivery O2 Flow Rate FiO2 11/23/18 09:30 70 15 139/79 (99) 91 11/23/18 07:54 98.1 Room Air Impression: Primary Impression: Fracture, hip Condition: Improved Disposition: Admitted from ER Referrals: HECTOR OLIVARES MD (PCP) MEENU ENRIQUEZ MD Nov 23, 2018 08:00
[2018-11-23 08:11] LABS: PLATELET COUNT, AUTOMATED 329 K/uL (150-450)
[2018-11-23] MEDS ORDERED: IOPAMIDOL 76% 100 ML INFUS BTL 100 ML ONE (08:16)
[2018-11-23 08:35] LABS: INR 1.04
--- NOTE | 2018-11-23 08:42 | RADIOLOGY IMAGING REPORT ---
FACILITY: [facility] - [place] PATIENT NAME: Yobany Berrios : 1930 MR: [id number] V: [id number] EXAM DATE: ORDERING PHYSICIAN: MEENU ENRIQUEZ TECHNOLOGIST: Location: [facility] - [place] Patient: Yobany Berrios : 1930 Visit/Account:[id number] Date of Sevice: 11/23/2018 Exam type: PELVIS History: Fall with pain Comparison: None. Findings: There is intratrochanteric fracture through the left hip with slight superior and lateral displacemen t of the distal fragment. Moderate degenerative changes of both hip joints and visualized lower lumb ar spine also noted. IMPRESSION: 1. Intratrochanteric fracture through the left hip with slight superior and lateral displacement of the distal fragment. A lateral view was not obtained to evaluate the AP relationship of fragments Report Dictated By: Comfort Gardner MD at 11/23/2018 8:34 AM Report E-Signed By: Comfort Gardner MD at 11/23/2018 8:36 AM WSN:[email or web address]
--- NOTE | 2018-11-23 08:44 | RADIOLOGY IMAGING REPORT ---
FACILITY: [facility] PATIENT NAME: Yobany Berrios : 1930 MR: [id number] V: [id number] EXAM DATE: ORDERING PHYSICIAN: MEENU ENRIQUEZ TECHNOLOGIST: Location: [facility] - [place], [place] Patient: Yobany Berrios : 1930 Visit/Account:[id number] Date of Sevice: 11/23/2018 Exam type: CHEST SINGLE AP History: fall Comparison: April 27, 2018 Findings: The lungs are free of acute effusions, infiltrates or edema. The cardiac silhouette is normal in siz e. The trachea is in midline. There is mild prominence of the central pulmonary arteries unchanged. IMPRESSION: 1. No acute cardiac pulmonary process is seen Report Dictated By: Comfort Gardner MD at 11/23/2018 8:36 AM Report E-Signed By: Comfort Gardner MD at 11/23/2018 8:37 AM WSN:[email or web address]
--- NOTE | 2018-11-23 09:21 | RADIOLOGY IMAGING REPORT ---
FACILITY: [facility] - [place] PATIENT NAME: Yobany Berrios : 1930 MR: [id number] V: [id number] EXAM DATE: ORDERING PHYSICIAN: MEENU ENRIQUEZ TECHNOLOGIST: Location: [facility] - [place] Patient: Yobany Berrios : 1930 Visit/Account:[id number] Date of Sevice: 11/23/[address] scan without contrast HISTORY: Fall COMPARISONS: 04/27/2018 TECHNIQUE: Non-contrast head CT was performed with sagittal and coronal reformations. One of the following dose optimization techniques was utilized in the performance of this exam: autom ated exposure control; adjustment of the mA and/or kV according to patient size; or use of iterative reconstruction technique. Specific details can be referenced in the facility's radiology CT exam ope rational policy. FINDINGS: There is no intracranial hemorrhage, hydrocephalus or midline shift. The basal cisterns, jimenez-white differentiation, and convexity sulci are maintained. Left parietal scalp swelling and soft tissue gas in keeping with laceration. Left temporal scalp swelling. Cataract postsurgical change noted. Unchan ged patchy white matter hypoattenuation. Trace left mastoid fluid. Mild bilateral maxillary sinus mucosal thickening and small sphenoid sinus mucous retention cyst. No acute osseous abnormality. IMPRESSION: No acute intracranial abnormality. Left parietal scalp laceration. Left temporal scalp swelling. Unchanged moderate chronic white matter chronic small vessel ischemic change. Report Dictated By: Cornelius Crowe MD at 11/23/2018 9:08 AM Report E-Signed By: Cornelius Crowe MD at 11/23/2018 9:13 AM WSN:[email or web address]
--- NOTE | 2018-11-23 09:25 | RADIOLOGY IMAGING REPORT ---
FACILITY: [facility] - [place] PATIENT NAME: Yobany Berrios : 1930 MR: [id number] V: [id number] EXAM DATE: ORDERING PHYSICIAN: MEENU ENRIQUEZ TECHNOLOGIST: Location: [facility] Patient: Yobany Berrios : 1930 Visit/Account:[id number] Date of Sevice: 11/23/2018 EXAMINATION: CT Cervical spine without intravenous contrast HISTORY: Fall COMPARISON: None. TECHNIQUE: Axial images were obtained from the skull base through the upper thoracic spine without I V contrast administration. Coronal and sagittal reformatted images were generated from the axial sour ce data. One of the following dose optimization techniques was utilized in the performance of this exam: autom ated exposure control; adjustment of the mA and/or kV according to patient size; or use of iterative reconstruction technique. Specific details can be referenced in the facility's radiology CT exam ope rational policy. FINDINGS: Vertebral bodies and posterior elements: Normal cervical vertebral body heights. Moderate to severe m ultilevel facet arthropathy. Fused right C2-3 facet joint. Age-indeterminate mild T1 wedge compressio n deformity. Alignment: Grade 1 anterolisthesis of C5 on C6 and C6 on C7 secondary to facet arthropathy. Disc Spaces: Mild to moderate C5-6 disc space degeneration. Multilevel degenerative foraminal narrowi ng. Soft tissues: Normal. Visualized upper chest: Normal. IMPRESSION: 1. No acute cervical spine abnormality. 2. Degenerative cervical spine findings as described above. 3. Age-indeterminate mild T1 wedge compression deformity which may be chronic. If there is concern fo r an acute fracture at this level MR could be utilized for further evaluation. Report Dictated By: Cornelius Crowe MD at 11/23/2018 9:13 AM Report E-Signed By: Cornelius Crowe MD at 11/23/2018 9:19 AM WSN:[email or web address]
--- NOTE | 2018-11-23 09:40 | RADIOLOGY IMAGING REPORT ---
FACILITY: [facility] PATIENT NAME: Yobany Berrios : 1930 MR: [id number] V: [id number] EXAM DATE: ORDERING PHYSICIAN: MEENU ENRIQUEZ [place]CHN[place]: [place] [facility] [place]: [place]obany Ber[place] : 1930 Visit/Account:[id number] Date of Sevice: 11/23/2018 CT CHEST ABDOMEN PELVIS W/CON HISTORY: fall trauma ADDITIONAL HISTORY: None. TECHNIQUE: Following administration of IV contrast axial images acquired through the chest abdomen a nd pelvis during the portal venous phase. Coronal and sagittal reformatting was also performed.Dose Lowering Technique One of the following dose optimization techniques was utilized in the performance of this exam: Autom ated exposure control; adjustment of the mA and/or kV according to the patient's size; or use of an i terative reconstruction technique. Specific details can be referenced in the facility's radiology C T exam operational policy. CONTRAST: 75 mL Isovue-370 COMPARISON: June 10, 2012 FINDINGS: CHEST: Lungs/Pleura: There is a 3 mm noncalcified nodule lateral aspect right upper lobe best seen on image 30 of series 2. There is a 2 x 4 mm nodule anterior aspect right middle lobe best seen on image 54 that appears unchanged. There is a 3 mm subpleural nodule lateral aspect right middle lobe best seen on image 64 that appears unchanged. There is an 8 x 6 mm noncalcified nodule lateral aspect of the left lower lobe best seen on image 77. This was present on the prior CT although appears slightly more prominent although could be related to difference in slice thickness There is a 5 mm nodule anterior lateral lingula that appears unchanged. There peripheral bulla in the lower lobes slightly more prominent when compared the prior study Mediastinum/lymph nodes: Negative. Heart/vessels: There moderate coronary artery calcifications Bones/soft tissues: . There are spondylotic changes of the thoracic spine. 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 There is a small punctat e calcification in the head of the pancreas although was present on the prior study from 2012. Spleen: Negative. Pancreas: There several calcifications in the head of the pancreas Adrenals: Mild adrenal thickening Kidneys ureters and bladder : There suggestion of parapelvic cysts in the left kidney. Subcentimeter cortical hypodensity upper pole of the right kidney is too small to characterize although appears re latively unchanged in size when compared to the prior exam Genitalia: Prostate gland is enlarged heterogeneous and impinges upon the floor the bladder. GI: There is a moderate size hiatal hernia. There is diverticulosis in the left-sided the colon al though no CT evidence of acute diverticulitis Vessels/spaces/nodes: There moderate atherosclerotic calcifications throughout the abdomen and pelvi s. No evidence of free intra-abdominal or free pelvic fluid or free air Bones/soft tissues: There is a comminuted intratrochanteric fracture of the left hip with approximat e 9 mm lateral displacement and cm superior displacement of the distal fracture fragment and approxim ately 1.2 cm posterior's placement of the greater trochanter fragment Additional findings: None pertinent. IMPRESSION: There is a comminuted intertrochanteric fracture of the left hip as described above No other acute fractures identified in the chest abdomen and pelvis. There are bilateral pulmonary nodules that appear relatively unchanged when compared to June 10 013 The difference in imaging technique Moderate coronary artery calcification Postsurgical changes from a cholecystectomy with intra and ext ra hepatic biliary ductal dilatation. These changes may be related to the prior cholecystectomy. Th ere is a small punctate calcification the head the pancreas adjacent to the distal common bile duct a lthough this was present in 2012. A tiny chronic distal common bile duct stone cannot be totally exc luded. Depending upon the clinical presentation if biliary obstruction is of clinical concern and MR CP may be helpful Moderate size hiatal hernia Colonic diverticulosis Additional chronic findings as described Report Dictated By: Comfort Gardner MD at 11/23/2018 9:16 AM Report E-Signed By: Comfort Gardner MD at 11/23/2018 9:34 AM WSN:[email or web address]
--- NOTE | 2018-11-23 11:02 | General Surgery Consultation ---
History of Present Illness Requesting Physician Jr Olson Reason for Consult ground level fall Chief Complaint left hip pain History of Present Illness 88 yo male with witnessed ground level fall shortly prior to admission. No LOC. Unable to ambulate after fall 2/2 left hip pain. Brought to ER via ambulance. History Unable To Obtain Past Medical: Unable to Obtain/Update Home Meds Active Scripts Olanzapine (OLANZAPINE ODT) 5 Mg Tab.rapdis, 1-2 TAB PO QPM, #30 TAB 3 Refills Prov:HECTOR OLIVARES MD 08/31/18 Tamsulosin Hcl (TAMSULOSIN HCL) 0.4 Mg Cap.er.24h, 0.4 MG PO QPM, #30 CAP 6 Refills Prov:HECTOR OLIVARES MD 06/18/18 Omeprazole (OMEPRAZOLE) 20 Mg Capsule.dr, 1 CAP PO QPM for 90 Days, #90 CAP 3 Refills Prov:HECTOR OLIVARES MD 06/18/18 Discontinued Scripts Oseltamivir Phosphate (TAMIFLU) 75 Mg Cap, 75 MG PO QDAY, #14 CAP Patient to take 1 capsule qday for 10-14days Prov:HECTOR OLIVARES MD 07/28/18 Allergies: Coded Allergies: alendronate sodium (Verified Adverse Reaction, Mild, stomach pain, 11/23/18) Review of Systems All Systems Reviewed/Normal: Yes, Except as Noted Musculoskeletal: Other (see HPI) Exam Vital Signs Vital Signs Date Time Temp Pulse Resp B/P (MAP) Pulse Ox O2 Delivery O2 Flow Rate FiO2 11/23/18 13:17 96 Room Air 11/23/18 12:45 98.3 69 20 137/68 (91) General Appearance: Alert, Awake, No Acute Distress, Afebrile Neuro: No Gross deficits, Other (MORTON GCS 15) ENT: Normal, Other (posterior scalp laceration repaired with zurdo 4 cm) Neck: No Masses, Other (Collar on) Cardiovascular: Normal Rhythm & Peripheral Pulses Respiratory: No Respiratory Distress, Clear to Auscultation Chest: No Tenderness GI: Abd Soft and Non-Tender Musculoskeletal: Other (Left hip tenderness) Integumentary: Skin Intact without Lesion / Mass Psych: Alert & Oriented X3, Appropriate Mood & Affect Medical Decision Making Data Points Result Diagram: 11/23/18 0745 11/23/18 0745 EKG / Imaging Monitor Interpretation: Normal Sinus Rhythm Pre-Admit Course Medical Record Review: Yes Assessment and Plan Problems: (1) Fracture, hip Status: Acute Assessment & Plan: 11/23/18: operative repair in am with Ortho. SCDs and tertiary survey will be required. (2) Dementia Status: Chronic (3) Confusion Status: Acute Assessment & Plan: 11/23/18: will need PT/Ot and Speech eval. (4) Thoracic compression fracture Status: Acute Assessment & Plan: 11/23/18: sub acute vs acute. PT evaluation. Doubt TLSO brace would help. Time Spent: > 30 min Critical Time Spent: 1st 30-74 Minutes Venous Thromboembolism VTE Risk Physician Assess for VTE Risk: Yes Patient's VTE Risk: High VTE Diagnostic Test 2 Days Prior to Admit: No Antithrombotics Is Pt On Any Antithrombotics?: No Problem Qualifiers (1) Fracture, hip: Encounter type: initial encounter (2) Thoracic compression fracture: Thoracic vertebra fracture level: T1 SHITAL XAVIER MD Nov 23, 2018 11:01
[2018-11-23] MEDS ORDERED: fentaNYL CITR 100 MCG/2 ML AMP IVP ONE (11:30)
--- NOTE | 2018-11-23 12:14 | CONSULTATION ---
EVENT DATE: The patient was seen in the ER on 11/23/2018. HISTORY OF PRESENT ILLNESS This patient is an 88-year-old male who fell at an assisted living today and landed on his left hip. He was found to have a left intertrochanteric hip fracture by the ER. He was admitted by Trauma and Orthopedics was consulted for definitive management of the hip fracture. He denies any other major issues other than a scrap on his head and says that otherwise he is feeling pretty good. PAST MEDICAL HISTORY Significant for dementia and other minor medical problems but no other major medical issues. MEDICATIONS Please see the intake and medicine reconciliation sheet. ALLERGIES The patient denies any allergies verbally today. SOCIAL HISTORY The patient lives in the assisted living. He does have a and and son accompanying him and he says that he does not drink or or smoke. REVIEW OF SYSTEMS Otherwise unremarkable. The patient does have some skin lacerations on his head and a little bit of confusion, but otherwise denies all of the major review of systems. PHYSICAL EXAMINATION GENERAL: The patient is sitting in the hospital bed in no acute distress. Comfortable and cooperative, answers all questions appropriately. HEENT: Normocephalic, atraumatic, but does have a couple of lacerations on the backside of his head. Otherwise, extraocular movements are intact. CHEST: Calm and he has no wheezing. CARDIOVASCULAR: His heart has a regular rate. ABDOMEN: Soft and nontender. MUSCULOSKELETAL: His left hip does have some pain and irritation associated with general motion associated with it and just palpation over this area. His knee is otherwise stable to anterior drawer type test. He is able to wiggle his foot and says he has light-touch sensation on his dominguez. His contralateral extremity is otherwise unremarkable. RADIOLOGY X-rays show an intertrochanteric left hip fracture with globus displacement through the trochanters but no signs of obvious arthritis on the left side. ASSESSMENT AND PLAN This patient is an 88-year-old male with a left intertrochanteric hip fracture. I talked to him about the implications of this as well as the treatment options. He said that he would like to go ahead with a fixation associated with the intertrochanteric hip fracture and so we will get him set up to do this tomorrow. I talked to him while I doing the case and then talked to Dr. Frederick afterwards. Dr. Frederick said he is willing to take the case so we can get him in the operating room sooner and so we will get him set up for Dr. Frederick to do an intertrochanteric hip fixation tomorrow. NINA
[2018-11-23 12:45] VITALS: BP 137/68
--- NOTE | 2018-11-23 13:23 | RADIOLOGY IMAGING REPORT ---
FACILITY: [facility] [place] PATIENT NAME: Yobany Berrios : 1930 MR: [id number] V: [id number] EXAM DATE: ORDERING PHYSICIAN: MEENU ENRIQUEZ TECHNOLOGIST: [place] [facility] [place] Yobany Berrios : 1930 Visit/Account:[id number] Date of Sevice: 11/23/2018 EXAMINATION: MRI Thoracic spine without intravenous contrast HISTORY: Trauma. Back pain. COMPARISON: Chest, abdomen, and pelvis CT dated 11/23/2018. TECHNIQUE: Multi-planar, multi-sequence thoracic spine MRI was performed without intravenous contras t administration. FINDINGS: Alignment: Negative. Vertebral marrow signal: Acute fracture of the superior T11 vertebral body with minimal loss of heigh t and no significant retropulsion. 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 Paravertebral soft tissues: Negative. Thoracic cord: Negative. Disc Spaces: Mild multilevel degenerative disc disease and facet hypertrophy with no significant valente nosis. IMPRESSION: 1. Acute T11 superior vertebral body fracture with minimal loss of vertebral body height and no sign ificant retropulsion. No intraspinal hemorrhage. No additional acute fractures. 2. Mild multilevel degenerative disc disease and facet hypertrophy with no significant stenosis. Report Dictated By: Roger Fonseca MD at 11/23/2018 12:57 PM Report E-Signed By: Roger Fonseca MD at 11/23/2018 1:15 PM WSN:[id number]
[2018-11-23] MEDS ORDERED: NS(*) 0.9% 1000 ML BAG 1,000 ML IV PRN (13:33)
[2018-11-23] MEDS ORDERED: PROMETHAZINE 25 MG/ML 1 ML AMP IVP PRN (13:35)
--- NOTE | 2018-11-23 13:59 | History & Physical ---
History of Present Illness Chief Complaint Fall History of Present Illness 88yo male with PMHx significant for dementia, BPH, GERD who currently resides at [facility]. He reportedly had a fall earlier today during which he sustained left hip fracture, scalp laceration, and possible T1 compression fracture. He does not recall much of the circumstances regarding the fall. He denies any current CP/SOB/palpitations/nausea/emesis. He has no history of bleeding or clotting problems. No reported problems with anesthesia. He is oriented to person and place, but not time. He has been evaluated by Orthopedics and Trauma service. Surgical correction of the hip fracture is planned for tomorrow. He has been placed on C-collar and MRI of T1 is planned. History Problems: (1) Dementia Status: Chronic (2) GERD (gastroesophageal reflux disease) Status: Chronic (3) BPH (benign prostatic hyperplasia) Status: Chronic Home Meds Active Scripts Olanzapine (OLANZAPINE ODT) 5 Mg Tab.rapdis, 1-2 TAB PO QPM, #30 TAB 3 Refills Prov:HECTOR OLIVARES MD 08/31/18 Tamsulosin Hcl (TAMSULOSIN HCL) 0.4 Mg Cap.er.24h, 0.4 MG PO QPM, #30 CAP 6 Refills Prov:HECTOR OLIVARES MD 06/18/18 Omeprazole (OMEPRAZOLE) 20 Mg Capsule.dr, 1 CAP PO QPM for 90 Days, #90 CAP 3 Refills Prov:HECTOR OLIVARES MD 06/18/18 Discontinued Scripts Oseltamivir Phosphate (TAMIFLU) 75 Mg Cap, 75 MG PO QDAY, #14 CAP Patient to take 1 capsule qday for 10-14days Prov:HECTOR OLIVARES MD 07/28/18 Allergies: Coded Allergies: alendronate sodium (Verified Adverse Reaction, Mild, stomach pain, 11/23/18) Other Social/Family Hx He currently resides at [facility]. Hx Smoking: No Smoking Status: Never Smoker Caffeine/Cups Per Day: NONE Social Drug Use: Never Review of Systems Cardiovascular: No Chest Pain, No Palpitations Respiratory: No Shortness of Breath Exam Vital Signs Vital Signs Date Time Temp Pulse Resp B/P (MAP) Pulse Ox O2 Delivery O2 Flow Rate FiO2 11/23/18 13:17 96 Room Air 7/2/19 12:45 98.3 69 20 137/68 (91) General Appearance: Alert, Awake Neuro: Other (No focal motor deficits (but limited testing of LLE)) Eyes: PERRLA ENT: Oropharynx Clear, Other (posterior scalp laceration with zurdo in place) Cardiovascular: Regular Rate and Rhythm Respiratory: Clear to Auscultation Chest: No Tenderness GI: Abd Soft and Non-Tender : No CVA Tenderness Lymph: No Adenopathy Extremities: Warm, Pulses (PT WNL), Perfused Integumentary: Generalized Fragile Skin Psych: Other (oriented to person and place, but not time) Medical Decision Making Data Points Result Diagram: 11/23/18 0745 11/23/18 0745 Item Value Date Time Albumin 3.7 g/dl 11/23/18 0745 Total Protein 7.4 g/dl 11/23/18 0745 Alkaline Phosphatase 89 U/L 11/23/18 0745 Alanine Aminotransferase (ALT/SGPT) 20 U/L 11/23/18 0745 Aspartate Amino Transf (AST/SGOT) 27 U/L 11/23/18 0745 Total Bilirubin 0.4 mg/dl 11/23/18 0745 Urine Color Straw 11/23/18 1030 Urine Clarity Clear 11/23/18 1030 Urine pH 6.0 pH 11/23/18 1030 Urine Specific [place] 1.028 11/23/18 1030 Urine Protein Negative mg/dL 11/23/18 1030 Urine Glucose (UA) Negative mg/dL 11/23/18 1030 Urine Ketones Negative mg/dL 11/23/18 1030 Urine Blood Negative 11/23/18 1030 Urine Nitrite Negative 11/23/18 1030 Urine Bilirubin Negative 11/23/18 1030 Urine Urobilinogen Negative mg/dL 11/23/18 1030 Urine Leukocyte Esterase Negative 11/23/18 1030 Urine RBC None /HPF 11/23/18 1030 Urine WBC <1 /HPF 11/23/18 1030 Urine Bacteria Negative /HPF 11/23/18 1030 Urine Mucus None /HPF 11/23/18 1030 Urine Squamous Epithelial Cells None /LPF 11/23/18 1030 EKG / Imaging Imaging PATIENT NAME: Yobany Berrios : 1930 MR: [id number] V: [id number] EXAM DATE: ORDERING PHYSICIAN: MEENU ENRIQUEZ TECHNOLOGIST: Location: [facility] Patient: Yobany Berrios : 1930 Visit/Account:[id number] Date of Sevice: 11/23/2018 EXAMINATION: MRI Thoracic spine without intravenous contrast HISTORY: Trauma. Back pain. COMPARISON: Chest, abdomen, and pelvis CT dated 11/23/2018. TECHNIQUE: Multi-planar, multi-sequence thoracic spine MRI was performed without intravenous contrast administration. FINDINGS: Alignment: Negative. Vertebral marrow signal: Acute fracture of the superior T11 vertebral body with minimal loss of height and no significant retropulsion. 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 Paravertebral soft tissues: Negative. Thoracic cord: Negative. Disc Spaces: Mild multilevel degenerative disc disease and facet hypertrophy with no significant stenosis. IMPRESSION: 1. Acute T11 superior vertebral body fracture with minimal loss of vertebral body height and no significant retropulsion. No intraspinal hemorrhage. No additional acute fractures. 2. Mild multilevel degenerative disc disease and facet hypertrophy with no significant stenosis. Report Dictated By: Roger Fonseca MD at 11/23/2018 12:57 PM Report E-Signed By: Roger Fonseca MD at 11/23/2018 1:15 PM WSN:[id number] PATIENT NAME: Yobany Berrios : 1930 MR: [id number] V: [id number] EXAM DATE: [id number] ORDERING PHYSICIAN: MEENU ENRIQUEZ TECHNOLOGIST: Location: [facility] Patient: Yobany Berrios : 1930 Visit/Account:[id number] Date of Sevice: 11/23/2018 CT CHEST ABDOMEN PELVIS W/CON HISTORY: fall trauma ADDITIONAL HISTORY: None. TECHNIQUE: Following administration of IV contrast axial images acquired through the chest abdomen and pelvis during the portal venous phase. Coronal and sagittal reformatting was also performed.Dose Lowering Technique One of the following dose optimization techniques was utilized in the performanc e of this exam: Automated exposure control; adjustment of the mA and/or kV according to the patient's size; or use of an iterative reconstruction technique. Specific details can be referenced in the facility's radiology CT exam operational policy. CONTRAST: 75 mL Isovue-370 COMPARISON: June 10, 2012 FINDINGS: CHEST: Lungs/Pleura: There is a 3 mm noncalcified nodule lateral aspect right upper lobe best seen on image 30 of series 2. There is a 2 x 4 mm nodule anterior aspect right middle lobe best seen on image 54 that appears unchanged. There is a 3 mm subpleural nodule lateral aspect right middle lobe best seen on image 64 that appears unchanged. There is an 8 x 6 mm noncalcified nodule lateral aspect of the left lower lobe best seen on image 77. This was present on the prior CT although appears slightly more prominent although could be related to difference in slice thickness There is a 5 mm nodule anterior lateral lingula that appears unchanged. There peripheral bulla in the lower lobes slightly more prominent when compared the prior study Mediastinum/lymph nodes: Negative. Heart/vessels: There moderate coronary artery calcifications Bones/soft tissues: . There are spondylotic changes of the thoracic spine. Incidental note of a butterfly vertebra at T8 that appears stable ABDOMEN AND PELVIS: Hepatobiliary: There postsurgical changes from a cholecystectomy with intra and extrahepatic biliary ductal dilatation which may be related to the postcholecystectomy changes. There is a small punctate calcification in the head of the pancreas although was present on the prior study from 2013. Spleen: Negative. Pancreas: There several calcifications in the head of the pancreas Adrenals: Mild adrenal thickening Kidneys ureters and bladder : There suggestion of parapelvic cysts in the left kidney. Subcentimeter cortical hypodensity upper pole of the right kidney is too small to characterize although appears relatively unchanged in size when compared to the prior exam Genitalia: Prostate gland is enlarged heterogeneous and impinges upon the floor the bladder. GI: There is a moderate size hiatal hernia. There is diverticulosis in the left-sided the colon although no CT evidence of acute diverticulitis Vessels/spaces/nodes: There moderate atherosclerotic calcifications throughout the abdomen and pelvis. No evidence of free intra-abdominal or free pelvic fluid or free air Bones/soft tissues: There is a comminuted intratrochanteric fracture of the left hip with approximate 9 mm lateral displacement and cm superior displacement of the distal fracture fragment and approximately 1.2 cm posterior's placement of the greater trochanter fragment Additional findings: None pertinent. IMPRESSION: There is a comminuted intertrochanteric fracture of the left hip as described above No other acute fractures identified in the chest abdomen and pelvis. There are bilateral pulmonary nodules that appear relatively unchanged when compared to June 10, 2012 The difference in imaging technique Moderate coronary artery calcification Postsurgical changes from a cholecystectomy with intra and extra hepatic biliary ductal dilatation. These changes may be related to the prior cholecystectomy. There is a small punctate calcification the head the pancreas adjacent to the distal common bile duct alt nasrin this was present in 2012. A tiny chronic distal common bile duct stone cannot be totally excluded. Depending upon the clinical presentation if biliary obstruction is of clinical concern and MRCP may be helpful Moderate size hiatal hernia Colonic diverticulosis Additional chronic findings as described Report Dictated By: Comfort Gardner MD at 11/23/2018 9:16 AM Report E-Signed By: Comfort Gardner MD at 11/23/2018 9:34 AM WSN:[email or web address] PATIENT NAME: Yobany Berrios : 1930 MR: [id number] V: [id number] EXAM DATE: [id number] ORDERING PHYSICIAN: MEENU ENRIQUEZ TECHNOLOGIST: Location: [facility] Patient: Yobany Berrios : 1930 Visit/Account:[id number] Date of Sevice: 11/23/2018 Exam type: CHEST SINGLE AP History: fall Comparison: April 27, 2018 Findings: The lungs are free of acute effusions, infiltrates or edema. The cardiac silhouette is normal in size. The trachea is in midline. There is mild prominence of the central pulmonary arteries unchanged. IMPRESSION: 1. No acute cardiac pulmonary process is seen Report Dictated By: Comfort Gardner MD at 11/23/2018 8:36 AM Report E-Signed By: Comfort Gardner MD at 11/23/2018 8:37 AM WSN:[email or web address] PATIENT NAME: Yobany Berrios : 1930 MR: [id number] V: [id number] EXAM DATE: [id number] ORDERING PHYSICIAN: MEENU ENRIQUEZ TECHNOLOGIST: Location: [facility] Patient: Yobany Berrios : 1930 Visit/Account:[id number] Date of Sevice: 11/23/2018 EXAMINATION: CT Cervical spine without intravenous contrast HISTORY: Fall COMPARISON: None. TECHNIQUE: Axial images were obtained from the skull base through the upper thoracic spine without IV contrast administration. Coronal and sagittal reformatted images were generated from the axial source data. One of the following dose optimization techniques was utilized in the performance of this exam: automated exposure control; adjustment of the mA and/or kV according to patient size; or use of iterative reconstruction technique. Specific details can be referenced in the facility's radiology CT exam operational policy. FINDINGS: Vertebral bodies and posterior elements: Normal cervical vertebral body heights. Moderate to severe multilevel facet arthropathy. Fused right C2-3 facet joint. Age-indeterminate mild T1 wedge compression deformity. Alignment: Grade 1 anterolisthesis of C5 on C6 and C6 on C7 secondary to facet arthropathy. Disc Spaces: Mild to moderate C5-6 disc space degeneration. Multilevel degenerative foraminal narrowing. Soft tissues: Normal. Visualized upper chest: Normal. IMPRESSION: 1. No acute cervical spine abnormality. 2. Degenerative cervical spine findings as described above. 3. Age-indeterminate mild T1 wedge compression deformity which may be chronic. If there is concern for an acute fracture at this level MR could be utilized for further evaluation. Report Dictated By: Cornelius Crowe MD at 11/23/2018 9:13 AM Report E-Signed By: Cornelius Crowe MD at 11/23/2018 9:19 AM WSN:[email or web address] Assessment and Plan Problems: (1) Fracture, hip Status: Acute Assessment & Plan: Mr. Berrios should be a reasonable candidate for surgery/anesthesia, but will be at some increased risk due mainly to his age. He does not have known history of significant heart or lung disease. Will check EKG. He will need DVT prophylaxis post-op. His dementia will almost certainly complicate his rehab. (2) Dementia Status: Chronic Assessment & Plan: Mild-moderate. He is not currently on any medication regimen other than low dose olanzapine at bedtime. Will continue with same for now. Will try to minimize potential exacerbating factors. (3) GERD (gastroesophageal reflux disease) Status: Chronic Assessment & Plan: Continue PPI therapy. (4) BPH (benign prostatic hyperplasia) Status: Chronic Assessment & Plan: Montiel cath is currently in place. Will resume Flomax when cath comes out. (5) Thoracic compression fracture Status: Acute Assessment & Plan: MRI does not show any significant retropulsion or intraspina l hemorrhage. This will probably complicate his rehab as well. Copies to: HECTOR OLIVARES MD ; Venous Thromboembolism Antithrombotics Is Pt On Any Antithrombotics?: No Prophylaxis Tx Contraindicated Pharmacological Contraindicati: Surgical Contraindication (SCDs) Exam Sepsis Risk: No Definite Risk Problem Qualifiers (1) Thoracic compression fracture: Thoracic vertebra fracture level: T1 DANA STRAUSS MD Nov 23, 2018 13:59
[2018-11-23] MEDS: HYDROmorphone HCL 2 MG/ML SDV IVP PRN ×4 (14:03→22:53)
[2018-11-23 18:45] VITALS: BP 113/72
--- NOTE | 2018-11-23 19:12 | EKG ---
FACILITY: [facility] [place] PATIENT NAME: TOSHA WILSON : [id number] MR: [id number] V: [id number] EXAM DATE: ORDERING PHYSICIAN: DANA STRAUSS TECHNOLOGIST: Test Reason : pre-op Blood Pressure : / mmHG Vent. Rate : 066 BPM Atrial Rate : 066 BPM P-R Int : 182 ms QRS Dur : 086 ms QT Int : 404 ms P-R-T Axes : 028 020 051 degrees QTc Int : 423 ms Sinus rhythm Borderline left axis Poor R wave progression anteriorly Abnormal ECG Confirmed by DANA STRAUSS ([id number]) on 11/23/2018 8:59:10 PM Referred By: Confirmed By:DANA STRAUSS
[2018-11-23] MEDS: PANTOPRAZOLE SOD 40 MG TABEC PO SCH (20:40)
[2018-11-23] MEDS: OLANZapine ZYDIS ODT 5MG TABDP PO SCH (20:41)
[2018-11-24] VITALS (13 sets, daily range): BP systolic 97–127; BP diastolic 59–89; Ht 177.8 cm; Wt 72.6 kg
[2018-11-24] MEDS ORDERED: ACET325C5 PO (00:27)
[2018-11-24] MEDS ORDERED: LOPE-111 PO (00:48)
[2018-11-24] MEDS ORDERED: ASPI-757 PO (00:48)
[2018-11-24] MEDS ORDERED: GUAI237L36 PO (00:48)
[2018-11-24] MEDS ORDERED: MAG-65 PO (00:48)
[2018-11-24] MEDS ORDERED: CALC-521 PO (00:48)
[2018-11-24] MEDS ORDERED: MOM PO (00:48)
[2018-11-24] MEDS: HYDROmorphone HCL 2 MG/ML SDV IVP PRN ×2 (01:54→05:23)
[2018-11-24] MEDS ORDERED: LIDOCAINE MPF 1% 5 ML VIAL ONE (06:47)
[2018-11-24] MEDS ORDERED: fentaNYL CITR 100 MCG/2 ML AMP ONE (06:47)
[2018-11-24] MEDS ORDERED: ONDANSETRON 4 MG/2 ML VIAL ONE (06:47)
[2018-11-24] MEDS ORDERED: PROPOFOL EMUL(*) 10MG/ML 20 ML 20 ML ONE (06:47)
[2018-11-24] MEDS ORDERED: DEXAMETHASONE SOD PHOS 10MG/ML ONE (06:47)
[2018-11-24] MEDS ORDERED: ROPIVACAINE 0.2% 20 ML VIAL ONE (06:48)
[2018-11-24] MEDS ORDERED: KETAMINE HCL 200 MG/20 ML MDV ONE (06:48)
[2018-11-24] MEDS ORDERED: ROPIVACAINE 0.5% 20 ML VIAL ONE (06:48)
[2018-11-24] MEDS ORDERED: NS(*) 0.9% 100 ML BAG 200 ML ONE (07:02)
--- NOTE | 2018-11-24 07:32 | General Surgery Progress Note ---
Subjective Progress Notes Subjective No new complaints. No abdominal or chest pain. Has pain due to his chronic back pain and his hip fracture. Physical Exam Vital Signs Date Time Temp Pulse Resp B/P (MAP) Pulse Ox O2 Delivery O2 Flow Rate FiO2 11/24/18 01:50 98.3 73 20 124/65 (84) 89 Nasal Cannula 3.0 Intake and Output 11/24/18 07:02 Intake Total 240 ml Output Total 965 ml Balance -725 ml Intake Oral 240 ml Output Urine Total 965 ml General Appearance: Alert, Awake, No Acute Distress, Afebrile Neuro: No Gross deficits Eyes: PERRLA Cardiovascular: Regular Rate and Rhythm Respiratory: Clear to Auscultation Chest: No Tenderness GI: Soft and Non-Tender Extremities: Warm, Perfused Result Diagram: 11/23/18 0745 11/23/18 07 Monitor Interpretation: Normal Sinus Rhythm Assessment and Plan Problems: (1) Fracture, hip Status: Acute Assessment & Plan: 11/23/18: operative repair in am with Ortho. SCDs and tertiary survey will be required. 11/24/18: Tertiary exam completed. No other issues/injuries discovered. He is scheduled for surgery this morning to address his hip fracture and I don't see any trauma-related issues that would preclude this. Will sign off for now. Please let me know if you have an further trauma or surgical concerns. (2) Dementia Status: Chronic (3) Confusion Status: Acute Assessment & Plan: 11/23/18: will need PT/Ot and Speech eval. (4) Thoracic compression fracture Status: Acute Assessment & Plan: 11/23/18: sub acute vs acute. PT evaluation. Doubt TLSO brace would help. Condition Stable. Time Spent: < 30 min Exam Sepsis Risk: No Definite Risk Problem Qualifiers (1) Fracture, hip: Encounter type: initial encounter (2) Thoracic compression fracture: Thoracic vertebra fracture level: T1 ZULEIMA SOLARES MD Nov 24, 2018 07:32
[2018-11-24] MEDS ORDERED: FAMOTIDINE(*) 20MG/50ML PREMIX 50 ML IVPB ONE (08:15)
[2018-11-24] MEDS ORDERED: NORMOSOL R SOLN(*) 1000 ML BAG 1,000 ML IV ONE ×2 (08:15→11:03)
[2018-11-24] MEDS ORDERED: ceFAZolin(*) 2GM/D5W 50ML 50 ML IVPB ONE (08:50)
--- NOTE | 2018-11-24 12:34 | RADIOLOGY IMAGING REPORT ---
FACILITY: PATIENT NAME: Yobany Berrios : 1930 MR: [id number] V: [id number] EXAM DATE: ORDERING PHYSICIAN: CORIN GUTIERREZ TECHNOLOGIST: Location: [facility] [place] Patient: Yobany Berrios : 1930 Visit/Account:[id number] Date of Sevice: 11/24/2018 C-ARM FLUORO 1 HR HISTORY: LEFT HIP GAMMA NAILING COMPARISON: Preoperative study November 23, 2017 which demonstrates mildly displaced intertrochanteric le ft hip fracture FINDINGS: Serial intraoperative fluoroscopic images demonstrate orthopedic reduction of an intertrochanteric le ft hip fracture with placement of intramedullary nail and interlocking screw. Previously seen displa cement has been reduced and fracture appears well approximated. Fluoroscopy time: One minute and seven seconds Dose: DAP: Five Gy-cm2 IMPRESSION: Intraoperative orthopedic reduction of a left intertrochanteric hip fracture with near anatomic align ment achieved. Report Dictated By: Harrison Manzo MD at 11/24/2018 12:23 PM Report E-Signed By: Harrison Manzo MD at 11/24/2018 12:27 PM WSN:[email or web address]
--- NOTE | 2018-11-24 14:13 | Hospitalist Progress Note ---
Subjective Progress Notes Subjective The patient denies any pain. 1000cc of crystalloid, ketamine, ephedrine and etomidate given intra-op. In recovery, he was very somnolent and required a lot of O2. They ended up putting him on BIPAP. He had done well with that and is more awake. Physical Exam Vital Signs Date Time Temp Pulse Resp B/P (MAP) Pulse Ox O2 Delivery O2 Flow Rate FiO2 11/24/18 13:31 95 Bi-PAP 25.0 11/24/18 13:15 73 97/73 (81) 11/24/18 12:48 97.8 14 11/24/18 09:00 5.0 Intake and Output 11/24/18 07:02 Intake Total 240 ml Output Total 965 ml Balance -725 ml Intake Oral 240 ml Output Urine Total 965 ml General Appearance: No Acute Distress, Other (Sleepy, but opens eyes to voice and answers questions.) Cardiovascular: Regular Rate and Rhythm Respiratory: Other (Exp wheeze on right.) Extremities: No Edema Result Diagram: 11/23/18 0745 11/24/18 0752 Monitor Interpretation: Normal Sinus Rhythm Assessment and Plan Problems: (1) Fracture, hip Status: Acute Assessment & Plan: No CV/pulmonary issues post-op. His dementia will almost certainly complicate his rehab. Lovenox for VTE prophylaxis for now, but might switch to ASA if mobile and renal function improves. (2) Dementia Status: Chronic Assessment & Plan: Mild-moderate. He is not currently on any medication regimen other than low dose olanzapine at bedtime. Will continue with same for now. Will try to minimize potential exacerbating factors. (3) GERD (gastroesophageal reflux disease) Status: Chronic Assessment & Plan: Continue PPI therapy. (4) BPH (benign prostatic hyperplasia) Status: Chronic Assessment & Plan: Montiel cath is currently in place. Will resume Flomax when cath comes out. (5) Thoracic compression fracture Status: Acute Assessment & Plan: MRI does not show any significant retropulsion or intraspinal hemorrhage. This will probably complicate his rehab as well. (6) CKD (chronic kidney disease) stage 3, GFR 30-59 ml/min Status: Chronic Assessment & Plan: It is unclear what is his baseline renal function. Creatine 1.5 today. Will follow and continue hydration. Exam Sepsis Risk: No Definite Risk Problem Qualifiers (1) Fracture, hip: Encounter type: initial encounter (2) Thoracic compression fracture: Thoracic vertebra fracture level: T1 CHELITA WYNNE MD Nov 24, 2018 14:13
--- NOTE | 2018-11-24 16:20 | NUR ---
Physical Therapy Impression PT rhonda completed with family interview and chart review. Pt currently on BiPap and unable to understand his communication. Pt resides in memory care unit of [facility] living [facility]. PT attempted PROM and AAROM for LE's to assess muscle function and pain-free range. Pt limited by difficulty understanding instructions possibly related to dementia and possibly due to noise of BiPap unit. Pt also demos fear and guarding related to movement even with Upper body initially with hands clenched. Pt did gradually participate in UE AROM reaching for PT's hand and did complete ankle pumps in small range of motion, but was very guarded for quad sets, small knee flexion and small hip abduction bilaterally. Recommend use of EZ lift and 2-3 person assist for next therapy visit if pt when pt is amendable to further movement safely. Physical Therapy Goals 1. Pt to be min assist for bed mobility and supine to/from sit trnsfrs 2. Pt to be min assist for sit to/from stand transfers with least restrictive device 3. Pt to complete [id number] transfer with Min assist to/from a variety of surfaces. Patient's Goals
[2018-11-24] MEDS: OLANZapine ZYDIS ODT 5MG TABDP PO SCH (20:26)
[2018-11-24] MEDS: PANTOPRAZOLE SOD 40 MG TABEC PO SCH (20:27)
[2018-11-24] MEDS ORDERED: LORazepam 2 MG/ML VIAL IVP PRN (20:50)
[2018-11-24] MEDS: OLANZapine ZYDIS ODT 5MG TABDP PO PRN ×2 (21:19→22:36)
[2018-11-25] VITALS (7 sets, daily range): BP systolic 97–137; BP diastolic 50–89
--- NOTE | 2018-11-25 05:03 | OPERATIVE REPORT 1 ---
EVENT DATE: November 23, 2018 SURGEON: Mannie Frederick MD ANESTHESIOLOGIST: Rojelio Miller DO ANESTHESIA: General endotracheal anesthesia. TRANSCRIBING OPERATOR HEAD: MAURICIO De Paz PREOPERATIVE DIAGNOSIS Left hip intertrochanteric fracture. POSTOPERATIVE DIAGNOSIS Left hip intertrochanteric fracture. PROCEDURE PERFORMED Open reduction and gamma nailing of left hip intertrochanteric fracture. INTRAVENOUS FLUIDS 800 mL. ESTIMATED BLOOD LOSS 40 mL. IMPLANTS USED A 135-degree short gamma nail with a 105 mm bolt and a 35 mm distal locking screw. SPECIMENS None. DRAINS None. COMPLICATIONS None. DISPOSITION Postanesthesia care unit. INDICATIONS FOR PROCEDURE Mr. Berrios is an 88-year-old gentleman who sustained a mechanical fall, landing on his left hip, on the day prior to surgery. He presented to the emergency department with pain and inability to bear weight. Examination revealed a shortened, externally rotated left lower extremity with pain with any motion of the hip. AP pelvis and a CT scan revealed an intertrochanteric proximal femur fracture. The patient and his crrok-cv-gnkrezpl were consulted, and we discussed treatment options. Ultimately, it was elected to undergo gamma nailing. Risks, benefits, and alternatives of surgery were discussed with the patient's svdoc-vg-gleccyuo, and again she agreed and voiced an understanding of all these. DESCRIPTION OF PROCEDURE The patient was met in the preoperative hold area, and the operative site was identified and marked. The patient was brought in good condition to the operating room, where he was positioned on a fracture table. All bony protuberances and soft tissues were well padded in the standard fashion. A fascial iliacus block was placed by Dr. Miller. The patient was placed in the traction device, which was well padded, and the patient was administered preoperative antibiotics according to the appropriate timing schedule. Under fluoroscopic guidance, traction and adduction of the hip resulted in an adequate reduction of the hip fracture. The patient was then prepped and draped in the standard sterile orthopedic fashion, and a guide pin was placed on the appropriate starting point at the tip of the greater trochanter. This was then advanced down the shaft of the femur past the fracture, and AP and lateral radiographs confirmed appropriate trajectory. The opening machine drill was then used to drill down over the pin to about the level of the lesser trochanter. The machine drill was withdrawn, and the short gamma nail was then placed over the wire and seated, ensuring that it was in appropriate position on both AP and lateral projections. The wire was then withdrawn, and a second incision was made for placement of the lag bolt. The skin was incised, as was the iliotibial band, and the lag bolt assembly was placed down onto bone. The guide pin was drilled up the femoral neck, again taking care to position it appropriately in a center/center fashion on AP and lateral radiographs. Once it was in appropriate position, we measured for the appropriate-length lag bolt, which was 105 mm. The drill was used to open the lateral cortex and drill a path for the lag bolt, which was then placed by hand under fluoroscopic guidance until it was appropriately seated. AP and lateral images confirmed appropriate placement of both the nail and the lag bolt. Attention was then turned to placement of the distal locking screw. The guide was set into the static mode, and the distal incision was made, again incising both the skin and the iliotibial band. The guide sleeve was placed down onto bone, and the drill was used to drill through both cortices of the femur. A 35 mm distal locking screw was chosen and placed under fluoroscopic guidance. The guides were then removed from the devices, and final radiographs were taken including AP and lateral views at the hip itself and AP and lateral views at the distal femur to confirm appropriate placement of both all instrumentation. The wounds were then irrigated with copious sterile saline solution and closed in layers using inverted interrupted sutures for the subcutaneous tissue and then zurdo for the skin. A sterile dressing was placed, and the patient was transported in good condition to the postanesthesia care unit. POSTOPERATIVE CARE PLAN The patient will return to the [facility] and will be cared for by the hospitalist postoperatively. Once he meets discharge criteria, he will be discharged home with instructions to follow up in two weeks for a wound check and examination. He will be weightbearing as tolerated. NINA
[2018-11-25 06:56] LABS: PLATELET COUNT, AUTOMATED 204 K/uL (150-450)
--- NOTE | 2018-11-25 09:20 | NUR ---
Physical Therapy Impression Pt continues to be confused and difficult to understand but agreeable to work with therapy today. Romaine to pull to seated position. CGA x2 for STS transfer with EZ lift, pt tolerated standing in EZ lift x5 minutes. Pt with minimal complaints of pain during session. Pt left in chair with foot elevated, call light within reach and nursing in room. RN planned to place TABS. Rec sub acute rehab. Physical Therapy Goals 1. Pt to be min assist for bed mobility and supine to/from sit trnsfrs 2. Pt to be min assist for sit to/from stand transfers with least restrictive device 3. Pt to complete pptnz-nieb-lusyt transfer with Min assist to/from a variety of surfaces. Patient's Goals
[2018-11-25] MEDS: ENOXAPARIN 40 MG/0.4ML SYR SC SCH (09:48)
[2018-11-25] MEDS ORDERED: NS(*) 0.9% 1000 ML BAG 1,000 ML IV ONE (12:05)
--- NOTE | 2018-11-25 13:02 | Hospitalist Progress Note ---
Subjective Progress Notes Subjective Confused and agitated overnight, given increased Zyprexa dose. This am continues to hallucinate. Physical Exam Vital Signs Date Time Temp Pulse Resp B/P (MAP) Pulse Ox O2 Delivery O2 Flow Rate FiO2 11/25/18 11:57 99.7 89 24 97/50 (66) 92 Room Air 11/25/18 03:07 4.0 11/24/18 14:00 25.0 Intake and Output 11/25/18 07:02 Intake Total 3120 ml Output Total 750 ml Balance 2370 ml Intake Oral 1220 ml IV Total 1900 ml Output Urine Total 750 ml General Appearance: Awake, Afebrile Neuro: No Gross deficits Cardiovascular: Normal Rhythm & Peripheral Pulses Respiratory: Other (coarse breathsounds b/l) GI: Soft and Non-Tender Extremities: Soft and Non Tender, Warm, Pulses, Perfused Result Diagram: 11/25/1830 11/25/18 06 Monitor Interpretation: Normal Sinus Rhythm Assessment and Plan Problems: (1) Fracture, hip Status: Acute Assessment & Plan: No CV/pulmonary issues post-op. His dementia will almost certainly complicate his rehab. Lovenox for VTE prophylaxis for now, but might switch to ASA if mobile and renal function improves. (2) Dementia Status: Chronic Assessment & Plan: Mild-moderate. He is not currently on any medication regimen other than low dose olanzapine at bedtime. Will continue with same for now. Will try to minimize potential exacerbating factors. (3) GERD (gastroesophageal reflux disease) Status: Chronic Assessment & Plan: Continue PPI therapy. (4) BPH (benign prostatic hyperplasia) Status: Chronic Assessment & Plan: Resume Flomax. (5) Thoracic compression fracture Status: Acute Assessment & Plan: MRI does not show any significant retropulsion or intraspinal hemorrhage. This will probably complicate his rehab as well. (6) CKD (chronic kidney disease) stage 3, GFR 30-59 ml/min Status: Chronic Assessment & Plan: It is unclear what is his baseline renal function. Will follow and continue hydration. Exam Sepsis Risk: Severe Sepsis Risk Problem Qualifiers (1) Fracture, hip: Encounter type: initial encounter (2) Thoracic compression fracture: Thoracic vertebra fracture level: T1 WILTON MARTINEZ DO Nov 25, 2018 13:02
[2018-11-25] MEDS ORDERED: NS(*) 0.9% 1000 ML BAG 1,000 ML IV PRN (15:05)
[2018-11-25 16:07] LABS: PLATELET COUNT, AUTOMATED 219 K/uL (150-450)
[2018-11-25] MEDS: PANTOPRAZOLE SOD 40 MG TABEC PO SCH (20:41)
[2018-11-25] MEDS: OLANZapine ZYDIS ODT 5MG TABDP PO SCH (20:41)
[2018-11-25] MEDS: OLANZapine ZYDIS ODT 5MG TABDP PO PRN (21:32)
[2018-11-26 03:02] VITALS: BP 161/86
[2018-11-26 05:58] LABS: PLATELET COUNT, AUTOMATED 200 K/uL (150-450)
[2018-11-26 06:58] VITALS: BP 146/84
--- NOTE | 2018-11-26 07:22 | NUR ---
ECF Referral - Per nursing staff (Darell Branham and Darell Berry) on med/surg, patient is not following directions, having hallucinations and they firmly state he is not appropriate for ECF. Reviewed therapy notes. Will discuss with discharge planning and rehab before continuing the referral process.
--- NOTE | 2018-11-26 08:30 | NUR ---
Physical Therapy Impression Pt able to perform a transfer with RW, but required more assistance than yesterday's session with EZ lift transfer. Pt requiring ModAx2 and RW for stand pivot transfer from EOB to bed side commode. Pt with difficulty WB and taking any steps. Verbal cues provided throughout session, Pt following verbal cues relatively well. Transfer from bed side commode performed with EZ lift, ModAx2 required. Pt left sitting in reclining chair with all needs met and family present in room. Rec sub acute rehab. Physical Therapy Goals 1. Pt to be min assist for bed mobility and supine to/from sit trnsfrs 2. Pt to be min assist for sit to/from stand transfers with least restrictive device 3. Pt to complete aftrt-yjdt-wunut transfer with Min assist to/from a variety of surfaces. Patient's Goals
[2018-11-26] MEDS ORDERED: TAMSULOSIN HCL 0.4 MG CAP PO SCH (09:00)
[2018-11-26] MEDS ORDERED: NS(*) 0.9% 1000 ML BAG 1,000 ML IV PRN (09:05)
[2018-11-26] MEDS ORDERED: OLANZapine ZYDIS ODT 5MG TABDP PO PRN (09:05)
--- NOTE | 2018-11-26 09:31 | RADIOLOGY IMAGING REPORT ---
FACILITY: [facility] - [place] PATIENT NAME: Yobany Berrios : 1930 MR: [id number] V: [id number] EXAM DATE: ORDERING PHYSICIAN: DANA STRAUSS TECHNOLOGIST: Location: [facility] Patient: Yobany Berrios : 1930 Visit/Account:[id number] Date of Sevice: 11/26/2018 CHEST SINGLE AP HISTORY: Elevated white blood cell count. COMPARISON: Chest x-ray November 23, 2018. FINDINGS: Cardiomediastinal contours: The heart size is normal. Lungs and pleura: There is new parietal density in the left lower lobe with subtle elevation of left hemidiaphragm suggestive of volume loss. The findings are suggestive of pneumonia with atelectasis. There is right basilar atelectasis as well. There is no associated pleural effusion. Bones/soft tissues: There are no findings of a fracture. IMPRESSION: 1. New left lower lobe infiltrate with atelectasis and mild volume loss. 2. Probable right basilar atelectasis. Report Dictated By: Leonardo Hernandez MD at 11/26/2018 9:24 AM Report E-Signed By: Leonardo Hernandez MD at 11/26/2018 9:25 AM WSN:[id number]
[2018-11-26] MEDS: ENOXAPARIN 40 MG/0.4ML SYR SC SCH (09:35)
--- NOTE | 2018-11-26 09:42 | NUR ---
ECF Referral - Therapy reports that patient follows direction, the discharge plan is to return to [facility]. Currently the patient is not medically stable, elevated WBC's and full medical work up has been initiated. Will reevaluate once he becomes medically stable. PASRR process in progress.
--- NOTE | 2018-11-26 10:52 | Hospitalist Progress Note ---
Subjective Progress Notes Subjective He is agitated frequently. He does follow some simple commands fairly well. His sleep pattern has been disrupted. Physical Exam Vital Signs Date Time Temp Pulse Resp B/P (MAP) Pulse Ox O2 Delivery O2 Flow Rate FiO2 11/26/18 08:14 92 Room Air 11/26/18 06:58 99.4 105 24 146/84 (104) 11/25/18 03:07 4.0 11/24/18 14:00 25.0 Intake and Output 11/26/18 07:02 Intake Total 2083 ml Output Total 650 ml Balance 1433 ml Intake Oral 120 ml IV Total 1963 ml Output Urine Total 650 ml # Voids 5 General Appearance: Other (He is tremulous/frequent myoclonic jerks/prefers to keep his eyes closed) Neuro: Other (he does move all four extremities) ENT: Other (oral mucosa is dry/no lesions noted) Cardiovascular: Other (Regular no obvious murmur) Respiratory: Other (poor effort with scattered rhonchi) Chest: No Tenderness GI: Soft and Non-Tender Extremities: Warm, Perfused Result Diagram: 11/26/18 0546 11/25/18 0630 Monitor Interpretation: Normal Sinus Rhythm Assessment and Plan Problems: (1) Fracture, hip Status: Acute Assessment & Plan: He appears to have some acute delirium post-op. His WBC count has gone up. Will check UA and CXR to check for potential infection. Lovenox for VTE prophylaxis for now, but might switch to ASA if mobile and renal function improves. (2) Dementia Status: Chronic Assessment & Plan: Mild-moderate. He has not been on any medication regimen other than low dose olanzapine at bedtime. He does appear to have some acute delirium. Will try to minimize potential exacerbating factors, such as medications. Will check for possible infectious causes. Treat as needed. (3) GERD (gastroesophageal reflux disease) Status: Chronic Assessment & Plan: Continue PPI therapy. (4) BPH (benign prostatic hyperplasia) Status: Chronic Assessment & Plan: Continue Flomax. (5) Thoracic compression fracture Status: Acute Assessment & Plan: MRI does not show any significant retropulsion or intraspinal hemorrhage. This will probably complicate his rehab as well. (6) CKD (chronic kidney disease) stage 3, GFR 30-59 ml/min Status: Chronic Assessment & Plan: Creatinine has normalized to 1.1. It is unclear what is his baseline renal function. Will follow. Exam Sepsis Risk: Severe Sepsis Risk Problem Qualifiers (1) Fracture, hip: Encounter type: initial encounter (2) Thoracic compression fracture: Thoracic vertebra fracture level: T1 DANA STRAUSS MD Nov 26, 2018 10:52
[2018-11-26 11:32] VITALS: BP 107/74
[2018-11-26] MEDS: AMPICILLIN/SULBACT (*) 3 GM VL 3 GM in NS(*) 0.9% 100 ML MINI-BAG 100 ML IVPB SCH ×3 (11:35→23:19)
--- NOTE | 2018-11-26 11:36 | NUR ---
ST Impression Beside dysphagia evaluation complete. Please see full report for detailed information. Overall, pt presents with moderate cognitive dysphagia. Suspect post surgical delirium is negatively impacting safe coordination of swallow sequence, including poor task recognition, reduced bolus acceptance, reduced attention to task, difficulty recognizing material in oral cavity for efficient oral preparation, and delayed initiation of pharyngeal swallow with elevated risk for aspiration. Recommend a mechanically altered diet, nectar thick liquids, and crushed medications with adherence to compensations as outlined below. Pt will require 1:1 supervision for all PO intake, with hand-over- hand assist. Anticipate dysphagia symptoms will gradually improve with increased time s/p anesthesia and treatment of infection. RECOMMENDATIONS 1. Diet: mechanically altered solids, nectar thick liquids. 2. Medications: crushed with approval from pharmacy; otherwise 1 at a time with nectar thick liquids 3. Compensatory Techniques: regular oral hygiene, upright positioning during PO intake (up to chair if possible), minimize distractions, 1:1 supervision with meals, provide hand over hand assistance for self-feeding, no straws, small bites/sips, 1 bite/sip at a time, alternate consistencies, reflux precautions 4. Supervision with meals/snacks: constant, 1:1 supervision.
--- NOTE | 2018-11-26 11:45 | SLP BEDSIDE SWALLOW EVALUATION ---
SPEECH THERAPY ASSESSMENT Bedside dysphagia evaluation Ordering Physician: Yamilka Dunham MD Clinician: Erin Bower MS, [employer] Type of Assessment: Bedside Dysphagia Evaluation Patient: Yobany Berrios : [birth year] Evaluation Date: 11/26/2018 BACKGROUND The patient is an 88-year-old male [facility] after experiencing a fall and sustaining a L hip fracture, scalp laceration, and T1 compression fracture. Surgical hip repair was completed on 11/24/18. An ST consult was requested for completion of a bedside swallow evaluation and analysis of cognitive linguistic function with concern for coughing with PO intake, possible aspiration pneumonia, hx of dementia, and exacerbation of cognitive deficits with acute delirium s/p surgical procedure. The pt's WBC is elevated, with CXR revealing new LLL infiltrate with atelectasis and mild volume loss, in addition to probable R basilar atelectasis. Primary Medical Diagnosis: Hip fracture Pmhx: GERD, dementia Pain Scale (0-10): 0 LOC / Participation: alert throughout assessment (despite eye closure), participatory with extra wait-time, simplified instructions, validation techniques Follows instructions: yes, single-level with extra wait-time to process information Orientation: alert, oriented to self Functional Communication Deficits impact swallow function/safety, or response to therapy: No DYSPHAGIA Sialorrhea: No Xerostomia: Yes (medication side effect + oral breathing) Hygiene: WFL Supplemental Oxygen Use: No COPD Dx: No Pain with Swallow: Denies. Pt seen at the bedside for clinical swallowing assessment. Family present throughout encounter to supplement case history and provide information re: baseline status. Family reports chronic history of GERD with associated swallowing difficulties and reflux with PO intake. However, they perceive a significant exacerbation in dysphagia s/p hip surgery, with new onset of pharyngeal symptoms characterized by coughing and choking during meals. The pt required frequent verbal cues to keep his eyes opened, but was alert, verbal, and largely willing to participate. Pt responded well to simplified language, single-level instructions, and validation communication techniques to encourage consistent participation. Speech production was characterized by consonant imprecision and attempts to speak with relaxed mandible, tongue resting on oral cavity floor, and partially opened oral cavity. Unclear speech production was alternated with periods of complete activation of all articulators and 100% intelligibility. Oromotor exam was unremarkable apart from xerostomia. Oral cavity was swabbed and moisturized prior to initiation of PO trials. Of note, pt also with audible, snore-like respiration. Family reports this is consistent with baseline and associated with deviated septum. Administered PO trials of thin liquids via spoon and cup sip, nectar thick liquids via cup, pureed solids, mechanically altered solids, advanced solids, and medication administration in conjunction with RN. Pt required lyqu-ddhy-kmvg assistance for administration of all PO trials. Overall, pt presents with moderate cognitive dysphagia. Deficits characterized by decreased attention to task with attempts to converse immediately following bolus acceptance, broken mastication pattern, delayed initiation of oral preparation, delayed anterior to posterior bolus transit, and suspected premature posterior loss of thin liquids prior to pharyngeal swallow onset. Overt indicators of aspiration (aggressive coughing, wet vocal quality, throat clearing) were noted with trials of thin liquids via cup or tsp. This response was not observed with nectar thick consistencies. Pt also exhibited moderate post-swallow residue with advanced textures, requiring alternation of pureed textures or nectar thick liquids to clear oral cavity. Efficiency of oral preparation improved with substitution of pureed or mechanically altered vs advanced textures. With immersion of medication in pureed solid, pt attempted to masticate pill and required multiple, subsequent trials of puree and nectar thick liquids for successful deglutition. Suspect cognitive deficits / post-surgical delirium is negatively impacting safe coordination of swallow sequence, including poor task recognition, reduced bolus acceptance, reduced attention to task, difficulty recognizing material in oral cavity for efficient oral preparation, and delayed initiation of pharyngeal swallow with elevated risk for aspiration. Recommend a mechanically altered diet, nectar thick liquids, and crushed medications with adherence to compensations as outlined below. Pt will require 1:1 supervision for all PO intake, with [id number]-[id number] assist. Results and recommendations were discussed at length with the pt, RN, and family members. Provided written summary re: compensatory strategies, aspiration risks, aspiration precautions, and diet modification recommendations. Anticipate gradual improvement in dysphagia symptoms with increased time s/p anesthesia and treatment of infection. ST ASSESSMENT SUMMARY Aspiration Risk: Mild to moderately elevated. Negative prognostic indicators include compromised respiratory status and acute delirium with overt indicators of aspiration on thin liquids. SHEEBA: Level 3, total supervision, modification of liquids and solid textures. Speech Therapy Need Continued ST is warranted to monitor diet tolerance, evolve diet modification recommendations as indicated, and provide patient and caregiver instruction in compensatory strategies for minimized risk of future respiratory complications. ST interventions are also necessary to continue analysis of cognitive linguistic status with completion of further, formal assessment if the pt does not return to baseline following infection treatment. RECOMMENDATIONS 1. Diet: mechanically altered solids, nectar thick liquids. 2. Medications: crushed with approval from pharmacy; otherwise 1 at a time with nectar thick liquids 3. Compensatory Techniques: regular oral hygiene, upright positioning during PO intake (up to chair if possible), minimize distractions, 1:1 supervision with meals, provide hand over hand assistance for self-feeding, no straws, small bites/sips, 1 bite/sip at a time, alternate consistencies, reflux precautions 4. Supervision with meals/snacks: constant, 1:1 supervision. Thank you for this referral. Erin Bower M.S., [facility] Speech Therapist [*] NINA
--- NOTE | 2018-11-26 13:02 | NUR ---
This Physical Therapist or Surgical Consultant was present for the entire physical therapy session directing the services, making the skilled judgement, and was not engaged in treating another patient or doing another task at the same time as the treatment session. Addendum: 11/26/18 at 1302 by MILY WILSON PT Amended: Links added.
[2018-11-26 16:05] VITALS: BP 98/65
[2018-11-26] MEDS ORDERED: HYPROMELLOSE 0.4% LUB 15ML BTL OU PRN (16:35)
[2018-11-26 18:24] VITALS: BP 116/53
[2018-11-26] MEDS: ACETAMINOPHEN(*)1000 MG/100 ML 100 ML IVPB PRN (19:14)
[2018-11-26] MEDS: PANTOPRAZOLE SOD 40 MG TABEC PO SCH (21:19)
[2018-11-26] MEDS: OLANZapine ZYDIS ODT 5MG TABDP PO SCH (21:19)
[2018-11-26] MEDS: NS(*) 0.9% 1000 ML BAG 1,000 ML IV PRN (21:26)
[2018-11-26 22:35] VITALS: BP 132/65
[2018-11-27] VITALS (7 sets, daily range): BP systolic 88–178; BP diastolic 54–82
[2018-11-27 06:04] LABS: PLATELET COUNT, AUTOMATED 270 K/uL (150-450)
[2018-11-27] MEDS: AMPICILLIN/SULBACT (*) 3 GM VL 3 GM in NS(*) 0.9% 100 ML MINI-BAG 100 ML IVPB SCH ×4 (06:25→23:26)
[2018-11-27] MEDS ORDERED: LEVALBUTEROL 1.25 MG/3 ML NEB NEB PRN (06:40)
[2018-11-27] MEDS: LEVALBUTEROL 1.25 MG/3 ML NEB NEB SCH ×3 (06:52→16:53)
--- NOTE | 2018-11-27 06:58 | RADIOLOGY IMAGING REPORT ---
FACILITY: [facility] [place] PATIENT NAME: Yobany Berrios : 1930 MR: [id number] V: [id number] EXAM DATE: ORDERING PHYSICIAN: DANA STRAUSS TECHNOLOGIST: [place] [facility] [place] Yobany Berrios : 1930 Visit/Account:[id number] Date of Sevice: 11/27/2018 PORTABLE CHEST: Indication: Hypoxia. Technique: A single frontal film was obtained. Comparison: 11/26/2018 Skeletal and soft tissue structures: Intact and unchanged. Heart and mediastinum: Stable. Lung ramírez: There is now evidence of pulmonary vascular congestion and mild edema. Pleural spaces: Bilateral small effusions are present. Impression: Pulmonary vascular congestion, with bilateral small pleural effusions. Report Dictated By: Shar Mccall MD at 11/27/2018 6:43 AM Report E-Signed By: Shar Mccall MD at 11/27/2018 6:52 AM [id number]
[2018-11-27] MEDS: ACETAMINOPHEN(*)1000 MG/100 ML 100 ML IVPB PRN ×2 (07:22→15:27)
[2018-11-27] MEDS ORDERED: NS(*) 0.9% 250 ML BAG 250 ML in NS(*) 0.9% 250 ML BAG 250 ML IV ONE (07:40)
[2018-11-27] MEDS: NS(*) 0.9% 1000 ML BAG 1,000 ML IV PRN ×2 (08:06→18:02)
[2018-11-27] MEDS ORDERED: LORazepam 2 MG/ML VIAL IVP PRN (08:30)
[2018-11-27] MEDS: MORPHINE 4 MG/ML SDV IVP PRN ×2 (08:57→12:00)
--- NOTE | 2018-11-27 09:57 | Hospitalist Progress Note ---
Subjective Progress Notes Subjective This patient was admitted for a hip fracture. He had an aspiration event this morning. Patient Complains of: Cardiovascular: No: Chest Pain Respiratory: Cough, Congestion, Shortness of Breath Physical Exam Vital Signs Date Time Temp Pulse Resp B/P (MAP) Pulse Ox O2 Delivery O2 Flow Rate FiO2 11/27/18 07:59 34 103/64 (77) 95 Bi-PAP 11/27/18 07:34 98.1 95 10.0 30.0 Intake and Output 11/27/18 07:02 Intake Total 2165 ml Balance 2165 ml Intake Oral 960 ml IV Total 1205 ml # Voids 4 # Bowel Movements 1 Neuro: No Gross deficits Cardiovascular: Regular Rate and Rhythm Respiratory: Other (Bilateral rhonchi.) Extremities: No Edema Integumentary: No Cyanosis Result Diagram: 11/27/18 0537 11/27/18536 Monitor Interpretation: Normal Sinus Rhythm Assessment and Plan Problems: (1) Acute respiratory failure Assessment & Plan: He is now dependent on BiPAP. He remains a DNR/DNI. Family has requested that we focus our efforts on comfort. Morphine and Ativan have be en added as needed. (2) Aspiration syndrome Assessment & Plan: He had an aspiration event this morning resulting in respiratory distress. He has had recurrent aspiration through the admission. He is on Unasyn. (3) Fracture, hip Status: Acute Assessment & Plan: He did have operative repair on 11/24. He was on Lovenox prophylaxis, but this has been stopped as the family is transitioning him to comfort care. (4) Dementia Status: Chronic Assessment & Plan: Mild-moderate. He does have orders for Zyprexa. (5) Thoracic compression fracture Status: Acute Assessment & Plan: MRI does not show any significant retropulsion or intraspinal hemorrhage. This will probably complicate his rehab as well. (6) CKD (chronic kidney disease) stage 3, GFR 30-59 ml/min Status: Chronic Assessment & Plan: Creatinine has normalized to 1.1. It is unclear what is his baseline renal function. Will follow. Exam Sepsis Risk: Severe Sepsis Risk Problem Qualifiers (1) Fracture, hip: Encounter type: initial encounter (2) Thoracic compression fracture: Thoracic vertebra fracture level: T1 ZULEIMA BLACK DO Nov 27, 2018 09:57
--- NOTE | 2018-11-27 14:24 | NUR ---
Physical Therapy Impression Pt on hold at this time per nursing due to aspiration event earlier this date. Will check in on Thursday if appropriate. Physical Therapy Goals 1. Pt to be min assist for bed mobility and supine to/from sit trnsfrs 2. Pt to be min assist for sit to/from stand transfers with least restrictive device 3. Pt to complete [id number] transfer with Min assist to/from a variety of surfaces. Patient's Goals
--- NOTE | 2018-11-27 16:07 | Antimicrobial Stewardship ---
Antimicrobial Stewardship Empiricly appropriate: Yes (On Unasyn for aspiration event.) Renal/Hepatic dosing: Yes Reviewed for Drug Interaction: Yes Monitored for Toxicities: Yes Clinically stable/improving: No (Patient with fever and WBCs are climbing. ) IV to PO Opportunity: No (aspiration syndrome) Determine cumulative duration: 5-10 days JEMIMA SINGH Nov 27, 2018 16:07
[2018-11-27] MEDS: OLANZapine ZYDIS ODT 5MG TABDP PO SCH (20:58)
[2018-11-28] MEDS: LEVALBUTEROL 1.25 MG/3 ML NEB NEB SCH ×4 (05:16→17:06)
[2018-11-28] MEDS: AMPICILLIN/SULBACT (*) 3 GM VL 3 GM in NS(*) 0.9% 100 ML MINI-BAG 100 ML IVPB SCH ×4 (05:36→23:27)
[2018-11-28] MEDS: NS(*) 0.9% 1000 ML BAG 1,000 ML IV PRN (06:26)
[2018-11-28 06:56] VITALS: BP 163/86
[2018-11-28] MEDS ORDERED: NS(*) 0.9% 1000 ML BAG 1,000 ML IV PRN (11:01)
--- NOTE | 2018-11-28 11:59 | Hospitalist Progress Note ---
Subjective Progress Notes Subjective The patient denies new complaints. Feeling better today. Physical Exam Vital Signs Date Time Temp Pulse Resp B/P (MAP) Pulse Ox O2 Delivery O2 Flow Rate FiO2 11/28/18 10:13 68 20 11/28/18 10:03 94 Room Air 11/28/18 06:56 98.9 163/86 (111) 11/28/18 05:16 1.0 11/27/18 21:45 25.0 Intake and Output 11/28/18 07:02 Intake Total 3060 ml Output Total 350 ml Balance 2710 ml Intake Oral 360 ml IV Total 2700 ml Output Urine Total 350 ml # Voids 5 # Bowel Movements 1 General Appearance: Alert, Awake, No Acute Distress Cardiovascular: Regular Rate and Rhythm Respiratory: Other (Bibasilar rales. ) GI: Soft and Non-Tender Extremities: Warm, Perfused Psych: Appropriate Mood & Affect Result Diagram: 11/27/18 0537 11/27/18 0537 Monitor Interpretation: Normal Sinus Rhythm Assessment and Plan Problems: (1) Acute respiratory failure Assessment & Plan: He is now off of BiPAP and doing well on room air. He remains a DNR/DNI. Family has requested that we focus our efforts on comfort but do want to continue antibiotics. Morphine and Ativan were added as needed. He is receiving antibiotics for aspiration. His WBC is elevated, but clinically he is doing much better. His diet has been changed to dysphagia stage 2 and he is doing well with this so far. (2) Aspiration syndrome Assessment & Plan: He had an aspiration 11/27 resulting in respiratory distress. He has had recurrent aspiration through the admission but is now on a dysphagia 2 diet and seems to be doing better. He is on Unasyn. (3) Hematuria Status: Acute Assessment & Plan: Due to trauma from Montiel. Montiel is out now. Will continue to hold Lovenox and monitor. (4) Fracture, hip Status: Acute Assessment & Plan: He did have operative repair on 11/24. He was on Lovenox prophylaxis, but this was stopped as the family is transitioning him to comfort care.He does have hematuria due to some Montiel catheter trauma so will not restart Lovenox at this point even though he has improved significantly. (5) Dementia Status: Chronic Assessment & Plan: Mild-moderate. He does have orders for Zyprexa. (6) Thoracic compression fracture Status: Acute Assessment & Plan: MRI does not show any significant retropulsion or intraspinal hemorrhage. This will probably complicate his rehab as well. (7) CKD (chronic kidney disease) stage 3, GFR 30-59 ml/min Status: Chronic Assessment & Plan: Creatinine has normalized to 1.1. It is unclear what is his baseline renal function. Will follow. Time Spent on Plan of Care: < 30 min Exam Sepsis Risk: No Definite Risk Problem Qualifiers (1) Fracture, hip: Encounter type: initial encounter (2) Thoracic compression fracture: Thoracic vertebra fracture level: T1 TAMMY STRAUSS MD Nov 28, 2018 11:59
[2018-11-28 12:00] VITALS: BP 123/56
[2018-11-28 17:54] VITALS: BP 132/73
[2018-11-28] MEDS: OLANZapine ZYDIS ODT 5MG TABDP PO SCH (20:24)
[2018-11-28 23:00] VITALS: BP 149/72
[2018-11-29] MEDS: ACETAMINOPHEN(*)1000 MG/100 ML 100 ML IVPB PRN (01:25)
[2018-11-29 02:49] VITALS: BP 121/63
[2018-11-29] MEDS: LEVALBUTEROL 1.25 MG/3 ML NEB NEB SCH ×4 (05:03→16:53)
[2018-11-29] MEDS: AMPICILLIN/SULBACT (*) 3 GM VL 3 GM in NS(*) 0.9% 100 ML MINI-BAG 100 ML IVPB SCH ×3 (05:49→17:27)
[2018-11-29 06:05] LABS: PLATELET COUNT, AUTOMATED 270 K/uL (150-450)
[2018-11-29 06:52] VITALS: BP 131/70
--- NOTE | 2018-11-29 09:11 | NUR ---
ECF Referral - Unsure if patient is comfort care or if the goal is to rehab prior to returning to the Memory Care Unit at [facility], no family present to discuss. Request sent to rehab to evaluate patient early to determine appropriateness of skilled rehab.
--- NOTE | 2018-11-29 09:34 | NUR ---
ECF Referral - Spoke with Justin at [facility], state they cannot accommodate a Dysphagia diet, family must be able to prepare and administer but the staff at [facility] cannot. Also stated he had to be independent in mobility, ambulation or wheelchair and ADLs. They will most definitely want to do a reevaluation prior to returning to the Memory Care unit. Discussed this with son Darrel and his . They will discuss with the family regarding the diet/meal prep. They are very hopeful that he will progress back to a regular diet and independence and be able to return. Discussed progress that would be needed to stay on ECF and alternative discharge plans from there. Son and daughter in law aware of situation.
--- NOTE | 2018-11-29 10:12 | NUR ---
ST Impression Dysphagia tx completed with family present. Emphasis placed on analysis of diet tolerance, response to compensatory swallow strategies, and family educ re: aspiration risks, precautions, and POC. Pt cont to present with moderate cognitive dysphagia and suspected pharyngeal deficits with further hx of chronic acid reflux. Cognitive deficits continue to negatively impact safe coordination of swallow sequence, including poor task recognition, reduced bolus acceptance, reduced attention to task, difficulty recognizing material in oral cavity for efficient oral preparation, and delayed initiation of pharyngeal swallow with elevated risk for aspiration. Pt often attempted to converse with material in oral cavity in the absence of direct verbal instruction. Periods of engagement and attempts to converse were often alternated with periods of reduced alertness and eye closure. Dysphagia symptoms appear to correlate with fluctuations in cognitive status. Pt must be fully alert and accepting with total supervision prior to provision of PO intake. Recommend continuance of a mechanically altered diet, nectar thick liquids, and crushed medications with adherence to compensations as outlined below. Pt will require 1:1 supervision for all PO intake, with hand-over- hand or total assist for self-feeding. No overt indicators of aspiration were noted with assisted trials of mechanically altered solids or nectar thick liquids via spoon this date. RECOMMENDATIONS 1. Diet: mechanically altered solids, nectar thick liquids. 2. Medications: crushed with approval from pharmacy; otherwise 1 at a time with nectar thick liquids 3. Compensatory Techniques: regular oral hygiene, upright positioning during PO intake (up to chair if possible), avoid distractions, 1:1 supervision with meals, provide hand over hand or total assistance for self-feeding, liquids via spoon, small bites/sips, 1 bite/sip at a time, alternate consistencies, cease PO if indicators of aspiration are observed, adhere to general reflux precautions 4. Supervision with meals/snacks: constant, 1:1 supervision.
--- NOTE | 2018-11-29 10:14 | Hospitalist Progress Note ---
Subjective Progress Notes Subjective He has no complaints this morning. He reports he is feeling well. Physical Exam Vital Signs Date Time Temp Pulse Resp B/P (MAP) Pulse Ox O2 Delivery O2 Flow Rate FiO2 11/29/18 09:22 69 16 11/29/18 09:20 90 11/29/18 09:16 Room Air 11/29/18 06:52 97.9 131/70 (90) 2.0 11/27/18 21:45 25.0 Intake and Output 11/29/18 07:02 Intake Total 2900 ml Output Total 300 ml Balance 2600 ml Intake Oral 210 ml IV Total 2690 ml Output Urine Total 300 ml # Voids 8 # Bowel Movements 7 General Appearance: Alert, Awake, No Acute Distress, Afebrile Neuro: No Gross deficits Cardiovascular: Regular Rate and Rhythm Respiratory: No Respiratory Distress, Other (diminished in the right lung base) : Other (bruising noted to the penis and scrotum) Extremities: Warm, Perfused; No Edema Psych: Appropriate Mood & Affect Result Diagram: 11/29/1851911/29/18519 Monitor Interpretation: Normal Sinus Rhythm Assessment and Plan Problems: (1) Acute respiratory failure Assessment & Plan: He is now off of BiPAP and doing well on room air. He remains a DNR/DNI. Family has requested that we focus our efforts on comfort but do want to continue antibiotics. Morphine and Ativan were added as needed. He is receiving antibiotics for aspiration. His WBC is decreasing, but clinically he is doing much better. His diet has been changed to dysphagia stage 2 and he is doing well with this so far. (2) Aspiration syndrome Assessment & Plan: He had an aspiration 11/27 resulting in respiratory distress. He has had recurrent aspiration through the admission but is now on a dysphagia 2 diet and seems to be doing better. He is on Unasyn. (3) Hematuria Status: Acute Assessment & Plan: Due to trauma from Montiel. Montiel is out now. Will continue to hold Lovenox and monitor. Hemoglobin decreased today, will continue to monitor. (4) Fracture, hip Status: Acute Assessment & Plan: He did have operative repair on 11/24. He was on Lovenox prophylaxis, but this was stopped as the family is transitioning him to comfort care. He does have hematuria due to some Montiel catheter trauma so will not restart Lovenox at this point even though he has improved significantly. (5) Dementia Status: Chronic Assessment & Plan: Mild-moderate. He does have orders for Zyprexa. (6) Thoracic compression fracture Status: Acute Assessment & Plan: MRI does not show any significant retropulsion or intraspinal hemorrhage. This will probably complicate his rehab as well. (7) CKD (chronic kidney disease) stage 3, GFR 30-59 ml/min Status: Chronic Assessment & Plan: Creatinine has normalized to 0.9. It is unclear what is his baseline renal function. Will follow. Exam Sepsis Risk: No Definite Risk Problem Qualifiers (1) Fracture, hip: Encounter type: initial encounter (2) Thoracic compression fracture: Thoracic vertebra fracture level: T1 ALEX JO WINCH STRIPPER Nov 29, 2018 10:14
--- NOTE | 2018-11-29 11:32 | Medical Nutrition Therapy ---
Nutrition Anthropometrics Height (Inches): 70.00 Height (Calculated Centimeters: 177.595492 Weight (Pounds): 160 Weight (Calculated Kilograms): 72.575 BMI: 23 Óscar Nutrition Score: Adequate Óscar Nutrition Risk Score: 15 Dietary Referral Nutrition Risk Factors: Nutrition Risk Comment: Physical Findings Physical Appearance: WNR (Recommend Higher BMI for adults >70 years) Skin Appearance Skin Appearance: Edema Edema Location Modifier: Left Edema Location: Lower Extremity Type of Edema: Degree of Edema: Gastrointestinal Symptoms GI Symtoms: Appetite Changes Tube Present: Bowel Sounds: Recent Bowel Pattern: Stool Characteristics: Nutrition/Food History Fair Skipped Meals: Yes Nutritional Diagnosis Nutritional Risk Acuity 2: Dysphagia Nutritional Risk Acuity 3: OR & > 80 yrs, Fx & > 80 yrs Past Medical History: CKD Stage 3, Dementia, GERD, Dehydration Nutritional Acuity: 2-Moderate Nutrition Diagnosis: Swallowing Difficulties Nutrition Etiology: Physiological Causes Nutrition Problem/Etiology/Sym: as evidenced by coughing, aspiration, average intakes of 66% Energy Requirement: 2246 Protein Requirement: 73 (1g/kg) Fluid Requirement: 2246 (1mL/kcal) Nutrition Intervention: Cont diet as ordered, Encourage intake, Between meal supplement Food Likes: eggs Food Dislikes: cream of wheat, sausage Diet Comment To [facility]: PLEASE DELIVER ORANGE MAGIC CUP EVERY DAY AT 1400 Nutrition Monitoring & Eval Nutrition Goals: Eat 75-100% Meal Nutrition Follow-Up: Fair Intake Nutrition Monitoring: Monitor for dehydration given nectar thick liquids and past history of dehyration RD Patient Assessment Time: [address] Assessment Type: RD Assessment Patient Nutrition Acuity: 2-Moderate Follow Up Date: Nov 29, 2018 Nutritional Comment: Per diagnosis and problem, pt at mild nutr risk, will cont to monitor. 11/29/18-Reviewed pt past and present medical hx. Admit for hip fx, aspiration, acute respiratory failure. PMH includes dementia, CKD III, GERD. Pt currently on dysphagia 2 diet with nectar thick liquids per BAG FILLER. Average intake 66% x 8 meals. Pt wt appears to be stable wt on 06/18/18 clinic visit was 161.5 lbs, current wt is 160 lbs. Will add oral nutrition supplement (Magic Cup) at 1400 every day. Will continue to monitor pt intakes, weights, tolerance to oral nutrition supplement.DOMI CRAIN Nov 29, 2018 11:32
--- NOTE | 2018-11-29 12:10 | NUR ---
Physical Therapy Impression Pt tolerated transfer to edge of bed with Mod assist of PT. Pt was able to maintain sitting balance well while EZ lift was positioned and only CGA required to stand from bed. Pt then transferred to toilet for voiding and pericare, as pt had been incontinent in bed. Pt did require Min/CGA for sit to stand from toilet and then transferred to recliner. Pt demos good weight bearing on L) LE for this activity, with no grimmace or guarding noted during treatment session. Pt left with tabs alarm in place and multiple family members in room. Physical Therapy Goals 1. Pt to be min assist for bed mobility and supine to/from sit trnsfrs 2. Pt to be min assist for sit to/from stand transfers with least restrictive device 3. Pt to complete [id number] transfer with Min assist to/from a variety of surfaces. Patient's Goals
[2018-11-29 12:17] VITALS: BP 128/65
[2018-11-29 15:52] VITALS: BP 101/63
[2018-11-29 18:55] VITALS: BP 141/90
[2018-11-29] MEDS: OLANZapine ZYDIS ODT 5MG TABDP PO SCH (21:34)
[2018-11-29 23:25] VITALS: BP 131/99
[2018-11-30] MEDS: AMPICILLIN/SULBACT (*) 3 GM VL 3 GM in NS(*) 0.9% 100 ML MINI-BAG 100 ML IVPB SCH ×3 (00:12→12:24)
[2018-11-30] MEDS: LEVALBUTEROL 1.25 MG/3 ML NEB NEB SCH ×3 (05:19→14:07)
[2018-11-30 05:38] LABS: PLATELET COUNT, AUTOMATED 318 K/uL (150-450)
[2018-11-30 07:00] VITALS: BP 150/75
--- NOTE | 2018-11-30 08:45 | NUR ---
Inserted by physician Jesusita) S/P Marino blood from urethra, see urinary catheter intervention. Addendum: 11/30/18 at 0945 by DOMI VALENTIN RN Possible prostate laceration per physician.
--- NOTE | 2018-11-30 09:07 | NUR ---
ST Impression Consulted with pt, family, aide at AM meal. Encounter was brief d/t timing conflict with urologist. Pt consumed nectar thick liquids, administered via tsp w/ total assist from aide. No overt indicators of aspiration observed. However, aide reported single coughing episode in response to nectar thick liquids. This occurred with simultaneous attempt to converse with material in oral cavity. Behavior was managed with direct verbal instruction to cease talking during PO intake. Pt was lethargic with frequent eye closure throughout discussion. Reviewed the importance of ensuring adequate alertness prior to provision of PO intake. Recommend continuance of a mechanically altered diet, nectar thick liquids, and crushed medications with adherence to compensations as outlined below. Pt will require 1:1 supervision for all PO intake, with hand-over- hand or total assist for self-feeding. Per staff report, anticipate d/c to ECF this afternoon. ST will continue to closely follow. If symptoms of dysphagia persist despite treatment of infection and increased time s/p anesthesia, obtaining an objective assessment of swallow function (MBSS) may be warranted for a more thorough evaluation. RECOMMENDATIONS 1. Diet: mechanically altered solids, nectar thick liquids. 2. Medications: crushed with approval from pharmacy; otherwise 1 at a time with nectar thick liquids 3. Compensatory Techniques: regular oral hygiene, upright positioning during PO intake (up to chair if possible), avoid distractions, 1:1 supervision with meals, provide hand over hand or total assistance for self-feeding, liquids via spoon, small bites/sips, 1 bite/sip at a time, alternate consistencies, cease PO if indicators of aspiration are observed, adhere to general reflux precautions 4. Supervision with meals/snacks: constant, 1:1 supervision.
--- NOTE | 2018-11-30 10:22 | Hospitalist Progress Note ---
Subjective Progress Notes Subjective He has active bleeding from the penis this morning. No urine present, just blood. He denies any complaints. Patient Complains of: Cardiovascular: No: Chest Pain Respiratory: No: Shortness of Breath Physical Exam Vital Signs Date Time Temp Pulse Resp B/P (MAP) Pulse Ox O2 Delivery O2 Flow Rate FiO2 11/30/18 10:08 Nasal Cannula 3.0 11/30/18 09:57 80 11/30/18 09:57 79 18 11/30/18 07:00 97.8 150/75 (100) 11/27/18 21:45 25.0 Intake and Output 11/30/18 07:02 Intake Total 320 ml Output Total 565 ml Balance -245 ml Intake Oral 120 ml IV Total 200 ml Output Urine Total 565 ml # Voids 10 # Bowel Movements 7 General Appearance: Awake, No Acute Distress, Afebrile Neuro: No Gross deficits Cardiovascular: Regular Rate and Rhythm Respiratory: No Respiratory Distress, Clear to Auscultation : Other (active bleeding noted from tip of penis, no urine present) Psych: Appropriate Mood & Affect Result Diagram: 11/30/18 0515 11/30/18 0515 Monitor Interpretation: Normal Sinus Rhythm Assessment and Plan Problems: (1) Hematuria Status: Acute Assessment & Plan: Due to trauma from Montiel. Montiel was removed and had improved over the last few days. Active bleeding this morning. Consulted Dr. Grimaldo with bleeding. He recommended to place Coude Catheter for 1-2 days. Urine is clear with Montiel placed. Will continue to hold Lovenox and monitor. Continue to monitor hemoglobin. (2) Acute respiratory failure Assessment & Plan: He is now off of BiPAP and doing well on room air. He remains a DNR/DNI. Family has requested that we focus our efforts on comfort b ut do want to continue antibiotics. Morphine and Ativan were added as needed. He is receiving antibiotics for aspiration. His WBC is decreasing, but clinically he is doing much better. His diet has been changed to dysphagia stage 2 and he is doing well with this so far. (3) Aspiration syndrome Assessment & Plan: He had an aspiration 11/27 resulting in respiratory distress. He has had recurrent aspiration through the admission but is now on a dysphagia 2 diet and seems to be doing better. He is on Unasyn. (4) Fracture, hip Status: Acute Assessment & Plan: He did have operative repair on 11/24. He was on Lovenox prophylaxis, but this was stopped as the family is transitioning him to comfort care. He does have hematuria due to some Montiel catheter trauma so will not restart Lovenox at this point even though he has improved significantly. (5) Dementia Status: Chronic Assessment & Plan: Mild-moderate. He does have orders for Zyprexa. (6) Thoracic compression fracture Status: Acute Assessment & Plan: MRI does not show any significant retropulsion or intraspinal hemorrhage. This will probably complicate his rehab as well. (7) CKD (chronic kidney disease) stage 3, GFR 30-59 ml/min Status: Chronic Assessment & Plan: Creatinine has normalized to 0.9. It is unclear what is his baseline renal function. Will follow. Exam Sepsis Risk: No Definite Risk Problem Qualifiers (1) Fracture, hip: Encounter type: initial encounter (2) Thoracic compression fracture: Thoracic vertebra fracture level: T1 ALEX JO Nov 30, 2018 10:22
--- NOTE | 2018-11-30 11:25 | RADIOLOGY IMAGING REPORT ---
FACILITY: [facility] - [place] PATIENT NAME: Yobany Berrios : 1930 MR: [id number] V: [id number] EXAM DATE: ORDERING PHYSICIAN: ALEX JO TECHNOLOGIST: Location: [facility] Patient: Yobany Berrios : 1930 Visit/Account:[id number] Date of Sevice: 11/30/2018 Exam type: CHEST SINGLE AP History: SOB Comparison: November 27, 2018. Findings: There is mild interstitial prominence seen throughout the lungs although is minimally improved. Blun ting of left costophrenic angle appears relatively unchanged likely related to small left pleural eff usion. Period patchy airspace consolidation in the left lung base is also noted which may represent a small amount of atelectasis and or infiltrate although appears similar to the prior study. The car diac silhouette is enlarged but unchanged. IMPRESSION: 1. Mild interstitial process upper lungs is minimally improved when compared the prior study. This may represent improving pulmonary vascular congestion Mild blunting left costophrenic angle likely related to small left pleural effusion Patchy airspace consolidation the left lung base consistent with atelectasis and or developing infilt rate Report Dictated By: Comfort Gardner MD at 11/30/2018 11:16 AM Report E-Signed By: Comfort Gardner MD at 11/30/2018 11:18 AM WSN:[id number]
[2018-11-30] MEDS: MORPHINE 4 MG/ML SDV IVP PRN ×3 (11:58→14:45)
--- NOTE | 2018-11-30 13:17 | CONSULTATION ---
EVENT DATE: November 30, 2018 HISTORY OF PRESENT ILLNESS This is an 88-year-old white male whom I was asked to see for gross blood at the urethra meatus following voluntary removal of an inflated urethral Montiel by the patient with dementia. On exam, the patient had gross blood at the urethral meatus and on his peripad. Urine recently voided was almost pure blood, approximately 150 cc. I explained to the demented patient the problem and there is a question as to whether he actually understands. The son was present and problem and options were explained to his son. The son had a few questions that were answered. IMPRESSION 1. Removal of inflated urethral Montiel. 2. Gross blood per urethra secondary to #1. 3. Gross bloody urine secondary to #1. RECOMMENDATIONS 1. Replacement of urethral Montiel. 2. Urine for culture and sensitivities. Thank you for letting me share in the care of your patient. NINA
--- NOTE | 2018-11-30 13:29 | OPERATIVE REPORT 1 ---
EVENT DATE: November 30, 2018 SURGEON: Óscar Grimaldo MD PREOPERATIVE DIAGNOSIS 1. Removal of inflated urethral Montiel by the patient. 2. Gross blood at the urethral meatus and peripad. 3. Grossly bloody urine. POSTOPERATIVE DIAGNOSIS 1. Removal of inflated urethral Montiel by the patient. 2. Gross blood at the urethral meatus and peripad. 3. Grossly bloody urine. 4. Probable damage to the prostatic and pendulous urethra from removal of inflated urethral Montiel per urethra. PROCEDURE PERFORMED Replacement of Montiel. DESCRIPTION OF PROCEDURE The urethral meatus was prepped and draped. Lubrication was placed per urethra. 16 Coude-tip catheter was passed without any difficulty. 30 cc of solution was placed in the balloon. The discharge of urine was relatively clear confirming the probable diagnosis of damage to the prostatic and pendulous urethra to account for the gross bleeding from the urethra and in the subsequent urine. 1. I recommend leaving the Montiel indwelling for 24 to 48 hours to control the bleeding. 2. Change meatal dressing as needed for hygiene and cleanliness if persistent oozing of blood or otherwise persists. I will follow along. Again, thank you for letting me share in the care of your patient. NINA
--- NOTE | 2018-11-30 15:25 | NUR ---
Physical Therapy Impression Pt has again been transitioned to comfort care only and is currently requiring a significant amount of supplemental O2. PT to discharge at this time per hospitalist. Physical Therapy Goals 1. Pt to be min assist for bed mobility and supine to/from sit trnsfrs 2. Pt to be min assist for sit to/from stand transfers with least restrictive device 3. Pt to complete [id number] transfer with Min assist to/from a variety of surfaces. Patient's Goals
--- NOTE | 2018-11-30 16:53 | Death Summary ---
Pronounced Date: Nov 30, 2018 Pronounced Time: 16:30 Preliminary Cause of : Acute Respiratory Failure secondary to aspiration syndrome Assessment: Hip fracture, Hematuria, Dementia, Aspiration pneumonia History of Present Illness Please see admission history and physical for details. Hospital Course Admitted for hip fracture, had surgical repair. Post-operatively he had continued episodes of hypoxia secondary to aspiration. He was given modified diet, oxygen and antibiotics for aspiration pneumonia. Had conversation with JUSTA Vasquez, who wished to have him placed on comfort care. He then soon thereafter. Copies to: HECTOR OLIVARES MD ; [facility] Nov 30, 2018 16:53
== END 2018-11-30 16:30 | disposition expired | DRG 956 ==
LOC: ER 07:57 → MED 10:55
PROVIDERS: ADMIT Internal Medicine; ATTEND Internal Medicine
PROC: 0QS7XZZ Reposition Left Upper Femur, External Approach (ICD-10-PCS; principal; 2018-11-23)
PROC: 0QH734Z Insertion of Internal Fixation Device into Left Upper Femur, Percutaneous Approach (ICD-10-PCS; 2018-11-23)
PROC: 5A09357 Assistance with Respiratory Ventilation, Less than 24 Consecutive Hours, Continuous Positive Airway Pressure (ICD-10-PCS; 2018-11-27)
DX: S72.142A Displaced intertrochanteric fracture of left femur, initial encounter for closed fracture (principal); S37.30XA Unspecified injury of urethra, initial encounter; J69.0 Pneumonitis due to inhalation of food and vomit; J96.00 Acute respiratory failure, unspecified whether with hypoxia or hypercapnia; M48.54XA Collapsed vertebra, not elsewhere classified, thoracic region, initial encounter for fracture; R44.3 Hallucinations, unspecified; F05 Delirium due to known physiological condition; W19.XXXA Unspecified fall, initial encounter; Z66 Do not resuscitate; R31.9 Hematuria, unspecified; Z51.5 Encounter for palliative care; F03.90 Unspecified dementia, unspecified severity, without behavioral disturbance, psychotic disturbance, mood disturbance, and anxiety; K21.9 Gastro-esophageal reflux disease without esophagitis; N40.0 Benign prostatic hyperplasia without lower urinary tract symptoms; N18.3 Chronic kidney disease, stage 3 (moderate)
CPT/HCPCS: 36415; 36600; 70450; 71045; 71260; 72125; 72146; 72170; 74177; 76000; 81001; 82040; 82247; 82310; 82374; 82435; 82565; 82803; 82947; 84075; 84132; 84155; 84295; 84450; 84460; 84520; 85025; 85610; 85730; 87088; 90715; 93005; 94640; 94660; 94667; 94668; 97162; 99284; J0131; J0295; J0690; J1100; J1170; J1650; J2001; J2060; J2270; J2405; J2704; J2795; J3010; J3490; J7030; J7050; Q9967

== ENCOUNTER → 2018-11-23 | Outpatient (CLI) | payer MEDICARE ==
[~2018-11-23] MED LIST changes: +ACET325C5 PO; +ASPI-757 PO; +CALC-521 PO; +GUAI237L36 PO; +LOPE-111 PO; +MAG-65 PO; +MOM PO; -OMEP-125 PO; +OMEP-126 PO; -RANI-366 PO; +RANI-54 PO
[2018-11-24 13:41] VITALS: BMI 23.0
== END ==
LOC: AMB 07:17
PROVIDERS: ATTEND Nurse Practitioner
DX: S01.01XA Laceration without foreign body of scalp, initial encounter (principal); M25.552 Pain in left hip; W18.30XA Fall on same level, unspecified, initial encounter
CPT/HCPCS: A0425; A0427